=== PATIENT | female | born 1965 | race Caucasian/White ===

== ENCOUNTER 2019-06-17 14:42 | Inpatient (IN) | payer BC, OTHER ==
[2019-06-17] MEDS ORDERED: ACETAMINOPHEN TAB 500 MG TAB PO STA (15:28)
[2019-06-17] MEDS ORDERED: SODIUM CHLORIDE 0.9% 500 ML 500 ML IV STA (15:28)
[2019-06-17] MEDS ORDERED: ONDANSETRON 4 MG/2 ML VIAL IVP STA (15:28)
[2019-06-17] MEDS ORDERED: SODIUM CHLORIDE 0.9% 1,000 ML IV STA ×2 (15:28)
--- NOTE | 2019-06-17 15:35 | ED ---
Fever HPI - General Chief Complaint: Dizziness Stated Complaint: Back Pain/Headache Time Seen by Provider: 06/17/19 15:27 Source: patient, RN notes reviewed, old records reviewed Mode of arrival: ambulatory Limitations: no limitations - History of Present Illness Initial Comments: This is a 53-year-old female the ER for evaluation. Patient resents today for evaluation regarding dizziness lightheadedness not feeling well presented with fever diaphoresis. History of bariatric surgery. No recent change in medications no travel history no sick contacts mild nausea no vomiting no diarrhea no abdominal pain currently. MD Complaint: fever, malaise, weakness -: days(s) Temperature Source: subjective Associated Symptoms: chills, myalgias, headache, nausea Treatments Prior to Arrival: none - Related Data Home Medications Medication Instructions Recorded Confirmed Calcium Carbonate [Calcium] 1,200 mg PO DAILY 06/17/19 06/17/19 Ciprofloxacin HCl [Cipro] 250 mg PO Q12HR 06/17/19 06/17/19 Ferrous Sulfate [Feosol] 325 mg PO DAILY 06/17/19 06/17/19 Multivitamins, Thera [Multivitamin 1 tab PO DAILY 06/17/19 06/17/19 (formulary)] metFORMIN HCL 1,000 mg PO BID 06/17/19 06/17/19 Allergies Allergy/AdvReac Type Severity Reaction Status Date / Time latex Allergy Anaphylaxis Verified 06/17/19 16:02 Penicillins Allergy Anaphylaxis Verified 06/17/19 16:02 Review of Systems ROS Statement: Those systems with pertinent positive or pertinent negative responses have been documented in the HPI. ROS Other: All systems not noted in ROS Statement are negative. Past Medical History Past Medical History: Diabetes Mellitus Additional Past Medical History / Comment(s): CHRONIC BACK PAIN History of Any Multi-Drug Resistant Organisms: None Reported Past Surgical History: Bariatric Surgery Additional Past Surgical History / Comment(s): WEIGHT LOSS SURGERY- SLEEVE BYPASS Past Psychological History: No Psychological Hx Reported Smoking Status: Never smoker Past Alcohol Use History: None Reported Past Drug Use History: None Reported General Exam Limitations: no limitations General appearance: alert, in no apparent distress Head exam: Present: atraumatic, normocephalic, normal inspection Eye exam: Present: normal appearance, PERRL, EOMI. Absent: scleral icterus, conjunctival injection, periorbital swelling ENT exam: Present: normal exam, mucous membranes moist Neck exam: Present: normal inspection. Absent: tenderness, meningismus, lymphadenopathy Respiratory exam: Present: normal lung sounds bilaterally. Absent: respiratory distress, wheezes, rales, rhonchi, stridor Cardiovascular Exam: Present: normal rhythm, tachycardia, normal heart sounds. Absent: systolic murmur, diastolic murmur, rubs, gallop, clicks GI/Abdominal exam: Present: soft, normal bowel sounds. Absent: distended, te nderness, guarding, rebound, rigid Extremities exam: Present: normal inspection, full ROM, normal capillary refill. Absent: tenderness, pedal edema, joint swelling, calf tenderness Back exam: Present: normal inspection Neurological exam: Present: alert, oriented X3, CN II-XII intact Psychiatric exam: Present: normal affect, normal mood Skin exam: Present: warm, dry, intact, normal color. Absent: rash Course Vital Signs 06/17/19 06/17/19 06/17/19 15:20 17:03 18:05 Temperature 102.6 F H 100.7 F H 98.5 F Pulse Rate 107 H 93 87 Respiratory 18 18 18 Rate Blood Pressure 105/74 100/62 103/69 O2 Sat by Pulse 95 94 L 93 L Oximetry 06/17/19 19:04 Temperature Pulse Rate 87 Respiratory 18 Rate Blood Pressure 90/67 O2 Sat by Pulse 92 L Oximetry - Reevaluation(s) Reevaluation #1: 06/17/19 17:29 Medical record is reviewed Reevaluation #2: 06/17/19 17:29 Patient symptoms improving with hydration and fever control Medical Decision Making - Medical Decision Making 53 female the ER for evaluation will admit for IV antibiotics secondary to UTI and pyelonephritis. Fever. Not feeling well - Lab Data Result diagrams: 06/17/19 16:00 06/17/19 16:00 Lab Results 06/17/19 06/17/19 06/17/19 Range/Units 16:00 16:00 16:00 WBC 8.9 (3.8-10.6) k/uL RBC 4.10 (3.80-5.40) m/uL Hgb 13.4 (11.4-16.0) gm/dL Hct 39.6 (34.0-46.0) % MCV 96.5 (80.0-100.0) fL MCH 32.7 (25.0-35.0) pg MCHC 33.9 (31.0-37.0) g/dL RDW 16.3 H (11.5-15.5) % Plt Count 158 (150-450) k/uL Neutrophils % 82 % Lymphocytes % 11 % Monocytes % 5 % Eosinophils % 0 % Basophils % 1 % Neutrophils # 7.3 (1.3-7.7) k/uL Lymphocytes # 1.0 (1.0-4.8) k/uL Monocytes # 0.4 (0-1.0) k/uL Eosinophils # 0.0 (0-0.7) k/uL Basophils # 0.1 (0-0.2) k/uL Anisocytosis Slight PT 10.8 (9.0-12.0) sec INR 1.0 (<1.2) APTT 23.2 (22.0-30.0) sec D-Dimer 1.43 H (<0.60) mg/L FEU Sodium 138 (137-145) mmol/L Potassium 4.1 (3.5-5.1) mmol/L Chloride 103 (98-107) mmol/L Carbon Dioxide 21 L (22-30) mmol/L Anion Gap 14 mmol/L BUN 13 (7-17) mg/dL Creatinine 1.04 (0.52-1.04) mg/dL Est GFR (CKD-EPI)AfAm 71 (>60 ml/min/1.73 sqM) Est GFR (CKD-EPI)NonAf 61 (>60 ml/min/1.73 sqM) Glucose 188 H (74-99) mg/dL Plasma Lactic Acid Prakash (0.7-2.0) mmol/L Calcium 8.9 (8.4-10.2) mg/dL Phosphorus 3.1 (2.5-4.5) mg/dL Magnesium 1.8 (1.6-2.3) mg/dL Total Bilirubin 1.0 (0.2-1.3) mg/dL AST 36 (14-36) U/L ALT 104 H (9-52) U/L Alkaline Phosphatase 134 H (38-126) U/L Creatine Kinase 77 (30-135) U/L Troponin I (0.000-0.034) ng/mL NT-Pro-B Natriuret Pep pg/mL Total Protein 7.1 (6.3-8.2) g/dL Albumin 4.2 (3.5-5.0) g/dL TSH 31.600 H (0.465-4.680) mIU/L Urine Color Urine Appearance (Clear) Urine pH (5.0-8.0) Ur Specific [place] (1.001-1.035) Urine Protein (Negative) Urine Glucose (UA) (Negative) Urine Ketones (Negative) Urine Blood (Negative) Urine Nitrite (Negative) Urine Bilirubin (Negative) Urine Urobilinogen (<2.0) mg/dL Ur Leukocyte Esterase (Negative) Urine RBC (0-5) /hpf Urine WBC (0-5) /hpf Ur Squamous Epith Cells (0-4) /hpf Hyaline Casts (0-2) /lpf Urine Mucus (None) /hpf Influenza Type A RNA (Not Detectd) Influenza Type B (PCR) (Not Detectd) 06/17/19 06/17/19 06/17/19 Range/Units 16:00 16:00 16:00 WBC (3.8-10.6) k/uL RBC (3.80-5.40) m/uL Hgb (11.4-16.0) gm/dL Hct (34.0-46.0) % MCV (80.0-100.0) fL MCH (25.0-35.0) pg MCHC (31.0-37.0) g/dL RDW (11.5-15.5) % Plt Count (150-450) k/uL Neutrophils % % Lymphocytes % % Monocytes % % Eosinophils % % Basophils % % Neutrophils # (1.3-7.7) k/uL Lymphocytes # (1.0-4.8) k/uL Monocytes # (0-1.0) k/uL Eosinophils # (0-0.7) k/uL Basophils # (0-0.2) k/uL Anisocytosis PT (9.0-12.0) sec INR (<1.2) APTT (22.0-30.0) sec D-Dimer (<0.60) mg/L FEU Sodium (137-145) mmol/L Potassium (3.5-5.1) mmol/L Chloride (98-107) mmol/L Carbon Dioxide (22-30) mmol/L Anion Gap mmol/L BUN (7-17) mg/dL Creatinine (0.52-1.04) mg/dL Est GFR (CKD-EPI)AfAm (>60 ml/min/1.73 sqM) Est GFR (CKD-EPI)NonAf (>60 ml/min/1.73 sqM) Glucose (74-99) mg/dL Plasma Lactic Acid Prakash 1.5 (0.7-2.0) mmol/L Calcium (8.4-10.2) mg/dL Phosphorus (2.5-4.5) mg/dL Magnesium (1.6-2.3) mg/dL Total Bilirubin (0.2-1.3) mg/dL AST (14-36) U/L ALT (9-52) U/L Alkaline Phosphatase (38-126) U/L Creatine Kinase (30-135) U/L Troponin I <0.012 (0.000-0.034) ng/mL NT-Pro-B Natriuret Pep 154 pg/mL Total Protein (6.3-8.2) g/dL Albumin (3.5-5.0) g/dL TSH (0.465-4.680) mIU/L Urine Color Urine Appearance (Clear) Urine pH (5.0-8.0) Ur Specific [place] (1.001-1.035) Urine Protein (Negative) Urine Glucose (UA) (Negative) Urine Ketones (Negative) Urine Blood (Negative) Urine Nitrite (Negative) Urine Bilirubin (Negative) Urine Urobilinogen (<2.0) mg/dL Ur Leukocyte Esterase (Negative) Urine RBC (0-5) /hpf Urine WBC (0-5) /hpf Ur Squamous Epith Cells (0-4) /hpf Hyaline Casts (0-2) /lpf Urine Mucus (None) /hpf Influenza Type A RNA (Not Detectd) Influenza Type B (PCR) (Not Detectd) 06/17/19 06/17/19 Range/Units 16:00 16:10 WBC (3.8-10.6) k/uL RBC (3.80-5.40) m/uL Hgb (11.4-16.0) gm/dL Hct (34.0-46.0) % MCV (80.0-100.0) fL MCH (25.0-35.0) pg MCHC (31.0-37.0) g/dL RDW (11.5-15.5) % Plt Count (150-450) k/uL Neutrophils % % Lymphocytes % % Monocytes % % Eosinophils % % Basophils % % Neutrophils # (1.3-7.7) k/uL Lymphocytes # (1.0-4.8) k/uL Monocytes # (0-1.0) k/uL Eosinophils # (0-0.7) k/uL Basophils # (0-0.2) k/uL Anisocytosis PT (9.0-12.0) sec INR (<1.2) APTT (22.0-30.0) sec D-Dimer (<0.60) mg/L FEU Sodium (137-145) mmol/L Potassium (3.5-5.1) mmol/L Chloride (98-107) mmol/L Carbon Dioxide (22-30) mmol/L Anion Gap mmol/L BUN (7-17) mg/dL Creatinine (0.52-1.04) mg/dL Est GFR (CKD-EPI)AfAm (>60 ml/min/1.73 sqM) Est GFR (CKD-EPI)NonAf (>60 ml/min/1.73 sqM) Glucose (74-99) mg/dL Plasma Lactic Acid Prakash (0.7-2.0) mmol/L Calcium (8.4-10.2) mg/dL Phosphorus (2.5-4.5) mg/dL Magnesium (1.6-2.3) mg/dL Total Bilirubin (0.2-1.3) mg/dL AST (14-36) U/L ALT (9-52) U/L Alkaline Phosphatase (38-126) U/L Creatine Kinase (30-135) U/L Troponin I (0.000-0.034) ng/mL NT-Pro-B Natriuret Pep pg/mL Total Protein (6.3-8.2) g/dL Albumin (3.5-5.0) g/dL TSH (0.465-4.680) mIU/L Urine Color Yellow Urine Appearance Cloudy H (Clear) Urine pH 6.0 (5.0-8.0) Ur Specific [place] 1.016 (1.001-1.035) Urine Protein 1+ H (Negative) Urine Glucose (UA) Negative (Negative) Urine Ketones Negative (Negative) Urine Blood Trace H (Negative) Urine Nitrite Negative (Negative) Urine Bilirubin Negative (Negative) Urine Urobilinogen 6.0 (<2.0) mg/dL Ur Leukocyte Esterase Moderate H (Negative) Urine RBC 2 (0-5) /hpf Urine WBC 142 H (0-5) /hpf Ur Squamous Epith Cells 4 (0-4) /hpf Hyaline Casts 1 (0-2) /lpf Urine Mucus Rare H (None) /hpf Influenza Type A RNA Not Detected (Not Detectd) Influenza Type B (PCR) Not Detected (Not Detectd) - Radiology Data Radiology results: report reviewed (CTA chest abdomen pelvis shows positive pyelonephritis), image reviewed Disposition Clinical Impression: Dehydration, UTI (urinary tract infection), Pyelonephritis, Fever Disposition: ADMITTED IP TO THIS [facility] Condition: Fair Is patient prescribed a controlled substance at d/c from ED?: No Referrals: Nimesh Moody MD [Primary Care Provider] - 1-2 days
[2019-06-17] MEDS: IBUPROFEN 600 MG TAB PO STA ×2 (16:10→16:16)
[2019-06-17 16:27] LABS: Anisocytosis Slight; Basophils # (A) 0.1 k/uL (0-0.2); Basophils % (A) 1 %; Eosinophils % (A) 0 %; HCT 39.6 % (34.0-46.0); HGB 13.4 gm/dL (11.4-16.0); Lymphocytes % (A) 11 %; MCH 32.7 pg (25.0-35.0); MCHC 33.9 g/dL (31.0-37.0); MCV 96.5 fL (80.0-100.0); Mean Platelet Volume 7.5; Monocytes # (A) 0.4 k/uL (0-1.0); Monocytes % (A) 5 %; Neutrophils # (A) 7.3 k/uL (1.3-7.7); Neutrophils % (A) 82 %; Platelet Count 158 k/uL (150-450); RDW 16.3 % (11.5-15.5); WBC 8.9 k/uL (3.8-10.6)
[2019-06-17 16:28] LABS: Albumin 4.2 g/dL (3.5-5.0); Calcium 8.9 mg/dL (8.4-10.2); Magnesium 1.8 mg/dL (1.6-2.3); Partial Thromboplastin Time 23.2 sec (22.0-30.0); Phosphorus 3.1 mg/dL (2.5-4.5); Potassium 4.1 mmol/L (3.5-5.1); Prothrombin Time 10.8 sec (9.0-12.0); Total Protein 7.1 g/dL (6.3-8.2)
[2019-06-17 16:31] LABS: Appearance,Urine Cloudy (Clear); Bilirubin,Urine Negative (Negative); Blood,Urine Trace (Negative); Color,Urine Yellow; Glucose,Urine (UA) Negative (Negative); Hyaline Casts,Urine 1 /lpf (0-2); Ketones,Urine Negative (Negative); Leukocyte Esterase,Urine Moderate (Negative); Mucus,Urine Rare /hpf; Nitrite,Urine Negative (Negative); Protein,Urine 1+ (Negative); RBC,Urine 2 /hpf (0-5); Specific Gravity,Urine 1.016 (1.001-1.035); Squamous Epithelial Cell,Urine 4 /hpf (0-4)
--- NOTE | 2019-06-17 16:39 | XR ---
EXAMINATION TYPE: XR chest 2V DATE OF EXAM: 06/17/2019 COMPARISON: NONE HISTORY: Weakness TECHNIQUE: Frontal and lateral views of the chest are obtained. FINDINGS: Heart and mediastinum are normal. There are small linear density at the left lung base. Th e other lung romero are clear. There are no hilar masses. There is left-sided central venous catheter with tip in the superior vena cava. Bony thorax is intact. IMPRESSION: Minimal left-sided subsegmental atelectasis. Normal heart.
[2019-06-17 16:43] LABS: D-Dimer 1.43 mg/L FEU (<0.60)
[2019-06-17] MEDS ORDERED: IOPAMIDOL-300 CONTRAST 30 ML VIAL (ORAL USE) PO PRN (17:18)
[2019-06-17] MEDS ORDERED: MORPHINE SULFATE 4 MG/ML SYRINGE IVP STA (18:10)
--- NOTE | 2019-06-17 18:22 | CT ---
EXAMINATION TYPE: CT angio chest DATE OF EXAM: 06/17/2019 6:11 PM COMPARISON: None HISTORY: Headache, dizziness and weakness CT DLP: 312.2 mGycm Automated exposure control for dose reduction was used. CONTRAST: CTA scan of the thorax is performed with IV Contrast, patient injected with 100 mL of Isovue 370, pul monary embolism protocol. . There are 3-D post processed images. FINDINGS: There is mild linear reticular density at the lung bases consistent with scarring and subsegmental at electasis. There is no pleural effusion. There is no evidence of pulmonary mass. There are small hiat al hernia. There is previous gastric surgery. Heart size is normal. There is no pericardial effusion. There are no hilar masses. There is no medias tinal adenopathy. There is normal contrast opacification of the pulmonary arteries. I see no filling defects. There is intact thoracic spine. Bony thorax is intact. IMPRESSION: NO EVIDENCE OF PULMONARY EMBOLISM. MINIMAL SCARRING AND SUBSEGMENTAL ATELECTASIS AT THE LUNG BASES.
--- NOTE | 2019-06-17 18:46 | CT ---
EXAMINATION TYPE: CT abdomen pelvis w con DATE OF EXAM: 06/17/2019 COMPARISON: None HISTORY: Headache, dizziness and weakness Abdominal pain CT DLP: 1454.2 mGycm Automated exposure control for dose reduction was used. TECHNIQUE: Helical acquisition of images was performed from the lung bases through the pelvis. CONTRAST: Performed without Oral Contrast and with IV Contrast, patient injected with 100 mL of Isovue 370. FINDINGS: Lung bases are clear of consolidation. There is no pleural effusion. Heart size is normal. There is n o pericardial effusion. There is previous gastric surgery. There is a small hiatal hernia. Liver spleen appear normal. Gallbladder appears normal. Bile ducts are not dilated. There is no evide nce of pancreatic mass. There is no adrenal mass. There is some fullness of the left renal pelvis. There is mild left-sided perinephric stranding. Uterus is anteverted. There is no evidence of a pelvic mass. Bladder distends smoothly. There is no inguinal hernia. There is no free fluid in the pelvis. There i s no intestinal wall thickening. There is no evidence of a bowel obstruction. There is slight decreas ed cortical enhancement of the left kidney compared to the right. The bony pelvis is intact. Lumbar v ertebra appear intact. There is no compression fracture. There is no mesenteric edema. There is no ascites or free air. IMPRESSION: CHANGES IN THE LEFT KIDNEY WITH DECREASED CORTICAL ENHANCEMENT AND PERINEPHRIC INFLAMMATORY CHANGES S UGGESTIVE OF ACUTE PYELONEPHRITIS. Mild left renal obstruction not entirely excluded.
[2019-06-17] MEDS: SODIUM CHLORIDE 0.9% 500 ML 500 ML IV SCH ×2 (22:18→22:19)
[2019-06-17] MEDS ORDERED: SODIUM CHLORIDE 0.9% 500 ML 500 ML IV ONE (22:19)
[2019-06-17] MEDS: SODIUM CHLORIDE 0.9% 1,000 ML IV SCH (22:30)
[2019-06-17 22:40] LABS: Glucose,Whole Blood 152 mg/dL (75-99)
[2019-06-17 22:48] VITALS: BMI 41.5
[2019-06-17] MEDS: LEVOTHYROXINE 125 MCG TAB PO SCH (23:03)
[2019-06-17] MEDS: TEMAZEPAM 15 MG CAP PO PRN (23:03)
[2019-06-18] MEDS: SODIUM CHLORIDE 0.9% 1,000 ML IV SCH ×4 (01:07→21:20)
[2019-06-18] MEDS: ACETAMINOPHEN TAB 325 MG TAB PO PRN (03:41)
[2019-06-18] MEDS ORDERED: GENTAMICIN PER PHARMACY MISCELLANE PRN (05:36)
[2019-06-18] MEDS ORDERED: LEVOFLOXACIN 500MG-D5W PMX 500 MG in DEXTROSE/WATER 1 100ML.BAG IVPB ONE (05:45)
[2019-06-18] MEDS: INSULIN ASPART (NovoLOG) 100 UNIT/ML VIAL SQ SCH ×4 (07:02→21:17)
[2019-06-18 07:10] LABS: Glucose,Whole Blood 128 mg/dL (75-99)
[2019-06-18] MEDS ORDERED: GENTAMICIN 300 MG in SODIUM CHLORIDE 0.9% 100 ML IVPB ONE (07:30)
[2019-06-18] MEDS: MULTIVITAMINS, THERA 1 EACH TAB PO SCH (07:52)
[2019-06-18] MEDS: metFORMIN 500 MG TAB PO SCH ×2 (07:52→21:16)
[2019-06-18] MEDS: FERROUS SULFATE 325 MG TAB PO SCH (07:52)
[2019-06-18] MEDS: ENOXAPARIN 40 MG/0.4 ML SYRINGE SQ SCH (07:52)
[2019-06-18] MEDS: CALCIUM CARBONATE 500 MG CHEWABLE PO SCH (07:53)
--- NOTE | 2019-06-18 07:55 | P.HPIM ---
History of Present Illness H&P Date: 06/18/19 Chief Complaint: Back pain with fever This is a history of physical and a 53-year-old white female who was complaining of significant back pain. She was treated for UTI as an outpatient but essentially failed outpatient therapy. 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 The patient is now essentially admitted after evaluation for pyelonephritis. She has had positive blood culture for gram-negative bacilli is now being treated with dual antibiotic therapy. No hematuria stated. Review of Systems Constitutional: Reports fatigue, Reports fever, Reports sweats Eyes: denies blurred vision, denies pain Cardiovascular: Denies chest pain, Denies shortness of breath Respiratory: Denies cough Gastrointestinal: Denies abdominal pain, Denies diarrhea, Denies nausea, Denies vomiting Genitourinary: Reports flank pain Musculoskeletal: Denies myalgias Past Medical History Past Medical History: Diabetes Mellitus Additional Past Medical History / Comment(s): CHRONIC BACK PAIN History of Any Multi-Drug Resistant Organisms: None Reported Past Surgical History: Bariatric Surgery Additional Past Surgical History / Comment(s): WEIGHT LOSS SURGERY- SLEEVE BYPASS Past Psychological History: No Psychological Hx Reported Smoking Status: Never smoker Past Alcohol Use History: None Reported Past Drug Use History: None Reported Medications and Allergies Home Medications Medication Instructions Recorded Confirmed Type Calcium Carbonate [Calcium] 1,200 mg PO DAILY 06/17/19 06/17/19 History Ciprofloxacin HCl [Cipro] 250 mg PO Q12HR 06/17/19 06/17/19 History Ferrous Sulfate [Feosol] 325 mg PO DAILY 06/17/19 06/17/19 History Multivitamins, Thera [Multivitamin 1 tab PO DAILY 06/17/19 06/17/19 History (formulary)] metFORMIN HCL 1,000 mg PO BID 06/17/19 06/17/19 History Allergies Allergy/AdvReac Type Severity Reaction Status Date / Time latex Allergy Anaphylaxis Verified 06/17/19 16:02 Penicillins Allergy Anaphylaxis Verified 06/17/19 16:02 Physical Exam Vitals: Vital Signs Temp Pulse Pulse Resp BP BP Pulse Ox 06/18/19 04:40 98.2 F 84 20 103/69 95 06/18/19 03:41 120/80 06/17/19 22:43 98.2 F 89 20 101/73 98 06/17/19 22:01 98.9 F 89 18 88/53 93 L 06/17/19 21:14 82 18 89/54 92 L 06/17/19 20:12 98 F 83 18 90/67 93 L 06/17/19 19:04 87 18 90/67 92 L 06/17/19 18:05 98.5 F 87 18 103/69 93 L 06/17/19 17:03 100.7 F H 93 18 100/62 94 L 06/17/19 15:20 102.6 F H 107 H 18 105/74 95 Intake and Output 06/17/19 06/18/19 06/18/19 22:59 06:59 14:59 Intake Total 0 100 Output Total 1 Balance 0 99 Intake: Oral 0 100 Output: Urine 1 Other: # Voids 1 Weight 96.615 kg - Constitutional General appearance: no acute distress - EENT Eyes: EOMI - Neck Neck: no lymphadenopathy - Cardiovascular Rhythm: regular Heart sounds: normal: S1, S2 Abnormal Heart Sounds: no S3 Gallop - Gastrointestinal General gastrointestinal: soft, no tenderness - Integumentary Integumentary: no cellulitis - Neurologic Neurologic: CNII-XII intact - Musculoskeletal Musculoskeletal: strength equal bilaterally - Psychiatric Psychiatric: A&O x's 3, intact judgment & insight Results CBC & Chem 7: 06/17/19 16:00 06/17/19 16:00 Labs: Abnormal Lab Results - Last 24 Hours (Table) 06/17/19 06/17/19 06/17/19 Range/Units 16:00 16:00 16:00 RDW 16.3 H (11.5-15.5) % D-Dimer 1.43 H (<0.60) mg/L FEU Carbon Dioxide 21 L (22-30) mmol/L Glucose 188 H (74-99) mg/dL POC Glucose (mg/dL) (75-99) mg/dL ALT 104 H (9-52) U/L Alkaline Phosphatase 134 H (38-126) U/L TSH 31.600 H (0.465-4.680) mIU/L Urine Appearance (Clear) Urine Protein (Negative) Urine Blood (Negative) Ur Leukocyte Esterase (Negative) Urine WBC (0-5) /hpf Urine Mucus (None) /hpf 06/17/19 06/17/19 06/18/19 Range/Units 16:00 22:25 07:02 RDW (11.5-15.5) % D-Dimer (<0.60) mg/L FEU Carbon Dioxide (22-30) mmol/L Glucose (74-99) mg/dL POC Glucose (mg/dL) 152 H 128 H (75-99) mg/dL ALT (9-52) U/L Alkaline Phosphatase (38-126) U/L TSH (0.465-4.680) mIU/L Urine Appearance Cloudy H (Clear) Urine Protein 1+ H (Negative) Urine Blood Trace H (Negative) Ur Leukocyte Esterase Moderate H (Negative) Urine WBC 142 H (0-5) /hpf Urine Mucus Rare H (None) /hpf Microbiology - Last 24 Hours (Table) 06/17/19 16:00 Blood Culture Gram Stain - Preliminary Blood 06/17/19 16:00 Blood Culture - Final Blood 06/17/19 16:00 Urine Culture - Preliminary Urine,Voided Thrombosis Risk Factor Assmnt - Choose All That Apply Any of the Below Risk Factors Present?: Yes Each Factor Represents 1 point: Obesity (BMI >25) Other Risk Factors: No Thrombosis Risk Factor Assessment Total Risk Factor Score: 1 Thrombosis Risk Factor Assessment Level: Low Risk Assessment and Plan (1) Sepsis Current Visit: Yes Status: Acute Code(s): A41.9 - SEPSIS, UNSPECIFIED ORGANISM SNOMED Code(s): 43228983 (2) Dehydration Current Visit: Yes Status: Acute Code(s): E86.0 - DEHYDRATION SNOMED Code(s): 78270818 (3) Fever Current Visit: Yes Status: Acute Code(s): R50.9 - FEVER, UNSPECIFIED SNOMED Code(s): 842438684 (4) Pyelonephritis Current Visit: Yes Status: Acute Code(s): N12 - TUBULO-INTERSTITIAL NEPHRITIS, NOT SPCF ACUTE OR CHRONIC SNOMED Code(s): 57775891 (5) UTI (urinary tract infection) Current Visit: Yes Status: Acute Code(s): N39.0 - URINARY TRACT INFECTION, SITE NOT SPECIFIED SNOMED Code(s): 13690134 Plan: Continue empiric antibiotic treatment. IV hydration. Check CBC and CMP in a.m. For antibiotic assistance, I have asked infectious disease for consultation. The patient is otherwise full code. Prognosis is guarded.
[2019-06-18] MEDS: traMADol 50 MG TAB PO SCH ×4 (08:04→21:16)
[2019-06-18 08:15] LABS: Albumin 3.2 g/dL (3.5-5.0); Potassium 3.9 mmol/L (3.5-5.1); Total Bilirubin 0.6 mg/dL (0.2-1.3); Total Protein 5.9 g/dL (6.3-8.2)
[2019-06-18] MEDS ORDERED: PANTOPRAZOLE 40 MG/10 ML VIAL IV SCH (09:00)
[2019-06-18 09:16] LABS: Basophils % (A) 0 %; Eosinophils # (A) 0.1 k/uL (0-0.7); Eosinophils % (A) 1 %; HCT 33.1 % (34.0-46.0); HGB 10.8 gm/dL (11.4-16.0); Lymphocytes # (A) 0.8 k/uL (1.0-4.8); Lymphocytes % (A) 11 %; MCH 32.2 pg (25.0-35.0); MCHC 32.7 g/dL (31.0-37.0); MCV 98.6 fL (80.0-100.0); Macrocytosis Slight; Mean Platelet Volume 7.6; Monocytes # (A) 0.3 k/uL (0-1.0); Monocytes % (A) 4 %; Neutrophils # (A) 6.5 k/uL (1.3-7.7); Neutrophils % (A) 83 %; Platelet Count 141 k/uL (150-450); RBC 3.36 m/uL (3.80-5.40); WBC 7.9 k/uL (3.8-10.6)
--- NOTE | 2019-06-18 09:24 | P.CONS ---
History of Present Illness - Reason for Consult Consult date: 06/18/19 Sepsis - History of Present Illness This is a 53-year-old female who is history that over the past 6 months she has had frequent urinary tract infections. She states she has been treated in the past with Z-Carlitos, Bactrim and most recently with Cipro. She states that the UTI symptoms clear up and then about a week later she developed symptoms again. She recently moved to the [facility] and has been follow ing with our clinic which she does not recall the name. She was started on Cipro approximate 4-5 days ago. She did have a recheck at the clinic on Saturday and was provided with a new antibiotic which she has not had filled as there was a problem with the transmission of the prescription to her pharmacy. She states that she does follow with someone every 3 months to have blood work done regarding her hypothyroidism. She was told that checked it was in normal range the last blood draw. Patient's urinary symptoms include pain with urination, frequency. She denies having any fever or chills. She is complaining of back pain in the low sacrum area which is chronic and she has received steroid injections for this. She also complains of vertigo which is improved. She denies any CVA pain. The patient presented to the [facility] emergency center found to have a fever 102.6, white count was 8.9, d-dimer 1.43, creatinine 1.04, lactic acid 1.5, ALT 104, alkaline phosphatase 134. TSH was 31.6. Urinalysis cloudy, leukoesterase moderate, Shannan BC is 142. Influenza testing negative. Urine culture is in progress. Blood culture is positive for gram-negative bacilli. Chest x-ray shows minimal left subsegmental atelectasis. CTA of the chest with showed no pulmonary embolism. Minimal scar and subsegmental atelectasis. Abdomen and pelvis CAT scan with contrast showed changes in the left kidney consistent with acute pyelonephritis. Mild left renal obstruction not entirely excluded. Patient was provided Zosyn, Levaquin and Rocephin in the emergency center. She is currently on gentamicin and Levaquin. Review of Systems Constitutional: Denies anorexia, Denies chills, Denies fatigue, Denies fever, Denies poor appetite, Denies weakness Ears, nose, mouth and throat: Reports headache, Reports vertigo, Denies dental pain, Denies mouth pain, Denies nasal congestion, Denies nasal discharge, Denies sore throat Cardiovascular: Denies chest pain, Denies decreased exercise tolerance, Denies dyspnea on exertion, Denies edema, Denies leg edema, Denies lightheadedness, Denies syncope Respiratory: Denies cough, Denies cough with sputum, Denies dyspnea, Denies excessive sputum, Denies hemoptysis, Denies home oxygen, Denies wheezing Gastrointestinal: Denies abdominal pain, Denies constipation, Denies diarrhea, Denies loss of appetite, Denies nausea, Denies vomiting Genitourinary: Reports dysuria, Reports urgency, Reports urinary frequency, Denies flank pain Musculoskeletal: Denies frequent falls, Denies gait dysfunction, Denies muscle weakness, Denies myalgias Integumentary: Denies pruritus, Denies rash, Denies wounds Neurological: Denies aphasia, Denies change in mentation, Denies change in speech, Denies gait dysfunction, Denies numbness, Denies syncope, Denies weakness Psychiatric: Denies anxiety, Denies depression Past Medical History Past Medical History: Diabetes Mellitus, Thyroid Disorder Additional Past Medical History / Comment(s): CHRONIC BACK PAIN History of Any Multi-Drug Resistant Organisms: None Reported Past Surgical History: Bariatric Surgery Additional Past Surgical History / Comment(s): WEIGHT LOSS SURGERY- SLEEVE BYPASS Past Psychological History: No Psychological Hx Reported Smoking Status: Never smoker Past Alcohol Use History: None Reported Additional Past Alcohol Use History / Comment(s): Patient states that she is a lifelong nonsmoker. No marijuana or illicit drug use. She denies any alcohol use. She lives at home with her . There is a dog and a cat in the home. 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 Past Drug Use History: None Reported Medications and Allergies Home Medications Medication Instructions Recorded Confirmed Type Calcium Carbonate [Calcium] 1,200 mg PO DAILY 06/17/19 06/17/19 History Ciprofloxacin HCl [Cipro] 250 mg PO Q12HR 06/17/19 06/17/19 History Ferrous Sulfate [Feosol] 325 mg PO DAILY 06/17/19 06/17/19 History Multivitamins, Thera [Multivitamin 1 tab PO DAILY 06/17/19 06/17/19 History (formulary)] metFORMIN HCL 1,000 mg PO BID 06/17/19 06/17/19 History Allergies Allergy/AdvReac Type Severity Reaction Status Date / Time latex Allergy Anaphylaxis Verified 06/17/19 16:02 Penicillins Allergy Anaphylaxis Verified 06/17/19 16:02 Physical Exam Vitals: Vital Signs Temp Pulse Pulse Resp BP BP Pulse Ox 06/18/19 04:40 98.2 F 84 20 103/69 95 06/18/19 03:41 120/80 06/17/19 22:43 98.2 F 89 20 101/73 98 06/17/19 22:01 98.9 F 89 18 88/53 93 L 06/17/19 21:14 82 18 89/54 92 L 06/17/19 20:12 98 F 83 18 90/67 93 L 06/17/19 19:04 87 18 90/67 92 L 06/17/19 18:05 98.5 F 87 18 103/69 93 L 06/17/19 17:03 100.7 F H 93 18 100/62 94 L 06/17/19 15:20 102.6 F H 107 H 18 105/74 95 Intake and Output 06/17/19 06/18/19 06/18/19 22:59 06:59 14:59 Intake Total 0 100 Output Total 1 Balance 0 99 Intake: Oral 0 100 Output: Urine 1 Other: # Voids 1 Weight 96.615 kg Gen: This is a morbidly obese 53-year-old female. She is sitting on the edge of the bed eating breakfast and appears to be comfortable and in no acute distress. HEENT: Head is atraumatic, normocephalic. Pupils equal, round. Sclerae is anicteric. Conjunctiva pink. Mucous members of the mouth are moist. Patient is edentulous. No lesions noted. NECK: Supple. No JVD. No lymphadenopathy. No thyromegaly. LUNGS: Clear to auscultation. No wheezes or rhonchi. No intercostal retractions. HEART: Regular rate and rhythm. No murmur. ABDOMEN: Soft. Bowel sounds are present. No masses. No abdominal, suprapubic tenderness. No CVA tenderness. EXTREMITIES: No pedal edema. No calf tenderness. Dorsalis pedis +2 bila terally. NEUROLOGICAL: Patient is awake, alert and oriented x3. Cranial nerves 2 through 12 are grossly intact. Results Results: Laboratory Results WBC 7.9 k/uL (3.8-10.6) 06/18/19 07:43 RBC 3.36 m/uL (3.80-5.40) L 06/18/19 07:43 Hgb 10.8 gm/dL (11.4-16.0) L 06/18/19 07:43 Hct 33.1 % (34.0-46.0) L 06/18/19 07:43 MCV 98.6 fL (80.0-100.0) 06/18/19 07:43 MCH 32.2 pg (25.0-35.0) 06/18/19 07:43 MCHC 32.7 g/dL (31.0-37.0) 06/18/19 07:43 RDW 16.0 % (11.5-15.5) H 06/18/19 07:43 Plt Count 141 k/uL (150-450) L 06/18/19 07:43 Neutrophils % 83 % 06/18/19 07:43 Lymphocytes % 11 % 06/18/19 07:43 Monocytes % 4 % 06/18/19 07:43 Eosinophils % 1 % 06/18/19 07:43 Basophils % 0 % 06/18/19 07:43 Neutrophils # 6.5 k/uL (1.3-7.7) 06/18/19 07:43 Lymphocytes # 0.8 k/uL (1.0-4.8) L 06/18/19 07:43 Monocytes # 0.3 k/uL (0-1.0) 06/18/19 07:43 Eosinophils # 0.1 k/uL (0-0.7) 06/18/19 07:43 Basophils # 0.0 k/uL (0-0.2) 06/18/19 07:43 Anisocytosis Slight 06/17/19 16:00 Macrocytosis Slight 06/18/19 07:43 PT 10.8 sec (9.0-12.0) 06/17/19 16:00 INR 1.0 (<1.2) 06/17/19 16:00 APTT 23.2 sec (22.0-30.0) 06/17/19 16:00 D-Dimer 1.43 mg/L FEU (<0.60) H 06/17/19 16:00 Sodium 138 mmol/L (137-145) 06/18/19 07:43 Potassium 3.9 mmol/L (3.5-5.1) 06/18/19 07:43 Chloride 107 mmol/L (98-107) 06/18/19 07:43 Carbon Dioxide 24 mmol/L (22-30) 06/18/19 07:43 Anion Gap 7 mmol/L 06/18/19 07:43 BUN 11 mg/dL (7-17) 06/18/19 07:43 Creatinine 0.95 mg/dL (0.52-1.04) 06/18/19 07:43 Est GFR (CKD-EPI)AfAm 79 (>60 ml/min/1.73 sqM) 06/18/19 07:43 Est GFR (CKD-EPI)NonAf 69 (>60 ml/min/1.73 sqM) 06/18/19 07:43 Glucose 135 mg/dL (74-99) H 06/18/19 07:43 POC Glucose (mg/dL) 128 mg/dL (75-99) H 06/18/19 07:02 POC Glu Pile Driver Engineer ID Nasra Palafox 06/18/19 07:02 Plasma Lactic Acid Prakash 1.5 mmol/L (0.7-2.0) 06/17/19 16:00 Calcium 8.0 mg/dL (8.4-10.2) L 06/18/19 07:43 Phosphorus 3.1 mg/dL (2.5-4.5) 06/17/19 16:00 Magnesium 1.8 mg/dL (1.6-2.3) 06/17/19 16:00 Total Bilirubin 0.6 mg/dL (0.2-1.3) 06/18/19 07:43 AST 29 U/L (14-36) 06/18/19 07:43 ALT 80 U/L (9-52) H 06/18/19 07:43 Alkaline Phosphatase 94 U/L (38-126) 06/18/19 07:43 Creatine Kinase 77 U/L (30-135) 06/17/19 16:00 Troponin I <0.012 ng/mL (0.000-0.034) 06/17/19 16:00 NT-Pro-B Natriuret Pep 154 pg/mL 06/17/19 16:00 Total Protein 5.9 g/dL (6.3-8.2) L 06/18/19 07:43 Albumin 3.2 g/dL (3.5-5.0) L 06/18/19 07:43 TSH 31.600 mIU/L (0.465-4.680) H 06/17/19 16:00 Urine Color Yellow 06/17/19 16:00 Urine Appearance Cloudy (Clear) H 06/17/19 16:00 Urine pH 6.0 (5.0-8.0) 06/17/19 16:00 Ur Specific [place] 1.016 (1.001-1.035) 06/17/19 16:00 Urine Protein 1+ (Negative) H 06/17/19 16:00 Urine Glucose (UA) Negative (Negative) 06/17/19 16:00 Urine Ketones Negative (Negative) 06/17/19 16:00 Urine Blood Trace (Negative) H 06/17/19 16:00 Urine Nitrite Negative (Negative) 06/17/19 16:00 Urine Bilirubin Negative (Negative) 06/17/19 16:00 Urine Urobilinogen 6.0 mg/dL (<2.0) 06/17/19 16:00 Ur Leukocyte Esterase Moderate (Negative) H 06/17/19 16:00 Urine RBC 2 /hpf (0-5) 06/17/19 16:00 Urine WBC 142 /hpf (0-5) H 06/17/19 16:00 Ur Squamous Epith Cells 4 /hpf (0-4) 06/17/19 16:00 Hyaline Casts 1 /lpf (0-2) 06/17/19 16:00 Urine Mucus Rare /hpf (None) H 06/17/19 16:00 Influenza Type A RNA Not Detected (Not Detectd) 06/17/19 16:10 Influenza Type B (PCR) Not Detected (Not Detectd) 06/17/19 16:10 CBC & Chem 7: 06/17/19 16:00 06/18/19 07:43 Labs: Abnormal Lab Results - Last 24 Hours (Table) 06/17/19 06/17/19 06/17/19 Range/Units 16:00 16:00 16:00 RDW 16.3 H (11.5-15.5) % D-Dimer 1.43 H (<0.60) mg/L FEU Carbon Dioxide 21 L (22-30) mmol/L Glucose 188 H (74-99) mg/dL POC Glucose (mg/dL) (75-99) mg/dL Calcium (8.4-10.2) mg/dL ALT 104 H (9-52) U/L Alkaline Phosphatase 134 H (38-126) U/L Total Protein (6.3-8.2) g/dL Albumin (3.5-5.0) g/dL TSH 31.600 H (0.465-4.680) mIU/L Urine Appearance (Clear) Urine Protein (Negative) Urine Blood (Negative) Ur Leukocyte Esterase (Negative) Urine WBC (0-5) /hpf Urine Mucus (None) /hpf 06/17/19 06/17/19 06/18/19 Range/Units 16:00 22:25 07:02 RDW (11.5-15.5) % D-Dimer (<0.60) mg/L FEU Carbon Dioxide (22-30) mmol/L Glucose (74-99) mg/dL POC Glucose (mg/dL) 152 H 128 H (75-99) mg/dL Calcium (8.4-10.2) mg/dL ALT (9-52) U/L Alkaline Phosphatase (38-126) U/L Total Protein (6.3-8.2) g/dL Albumin (3.5-5.0) g/dL TSH (0.465-4.680) mIU/L Urine Appearance Cloudy H (Clear) Urine Protein 1+ H (Negative) Urine Blood Trace H (Negative) Ur Leukocyte Esterase Moderate H (Negative) Urine WBC 142 H (0-5) /hpf Urine Mucus Rare H (None) /hpf 06/18/19 Range/Units 07:43 RDW (11.5-15.5) % D-Dimer (<0.60) mg/L FEU Carbon Dioxide (22-30) mmol/L Glucose 135 H (74-99) mg/dL POC Glucose (mg/dL) (75-99) mg/dL Calcium 8.0 L (8.4-10.2) mg/dL ALT 80 H (9-52) U/L Alkaline Phosphatase (38-126) U/L Total Protein 5.9 L (6.3-8.2) g/dL Albumin 3.2 L (3.5-5.0) g/dL TSH (0.465-4.680) mIU/L Urine Appearance (Clear) Urine Protein (Negative) Urine Blood (Negative) Ur Leukocyte Esterase (Negative) Urine WBC (0-5) /hpf Urine Mucus (None) /hpf Microbiology - Last 24 Hours (Table) 06/17/19 16:00 Blood Culture Gram Stain - Preliminary Blood 06/17/19 16:00 Blood Culture - Final Blood 06/17/19 16:00 Urine Culture - Preliminary Urine,Voided Assessment and Plan Plan: This is a 53-year-old female who presented to the hospital with sepsis with fever, tachycardia secondary to acute pyelonephritis. Patient is currently on gentamicin and Levaquin. Urine culture is in progress. Blood culture is positive for gram negatives bacilli. We will ask for culture reports from her clinic note approximate 5 days ago. Repeat blood culture has been ordered. Incentive spirometry added to address atelectasis. Continue supportive care. Further admonitions as patient regresses. The above dictated assessment and findings were discussed with Dr. Srinivasan. The impression and plan of care have been directed as dictated. Adriane Vázquez nurse practitioner acting as scribe for Dr. Srinivasan.
[2019-06-18 12:17] LABS: Glucose,Whole Blood 112 mg/dL (75-99)
[2019-06-18 17:10] LABS: Glucose,Whole Blood 86 mg/dL (75-99)
[2019-06-18 20:25] LABS: Glucose,Whole Blood 188 mg/dL (75-99)
[2019-06-18] MEDS: LEVOTHYROXINE 125 MCG TAB PO SCH (21:16)
[2019-06-18] MEDS: TEMAZEPAM 15 MG CAP PO PRN (21:16)
--- NOTE | 2019-06-18 23:47 | P.CON ---
Consult Note - . Consult date: 06/18/19 Assessment/Plan:: This is a 53-year-old female who is history that over the past 6 months she has had frequent urinary tract infections. She states she has been treated in the past with Z-Carlitos, Bactrim and most recently with Cipro. She states that the UTI symptoms clear up and then about a week later she developed symptoms again. She recently moved to the [facility] and has been following with our clinic which she does not recall the name. She was started on Cipro approximate 4-5 days ago. She did have a recheck at the clinic on Saturday and was provided with a new antibiotic which she has not had filled as there was a problem with the transmission of the prescription to her pharmacy. She states that she does follow with someone every 3 months to have blood work done regarding her hypothyroidism. She was told that checked it was in normal range the last blood draw. Patient's urinary symptoms include pain with urination, frequency. She denies having any fever or chills. She is complaining of back pain in the low sacrum area which is chronic and she has received steroid injections for this. She also complains of vertigo which is improved. She denies any CVA pain. The patient presented to the [facility] emergency center found to have a fever 102.6, white count was 8.9, d-dimer 1.43, creatinine 1.04, lactic acid 1.5, ALT 104, alkaline phosphatase 134. TSH was 31.6. Urinalysis cloudy, leukoesterase moderate, Shannan BC is 142. Influenza testing negative. Urine culture is in progress. Blood culture is positive for gram-negative bacilli. Chest x-ray shows minimal left subsegmental atelectasis. CTA of the chest with showed no pulmonary embolism. Minimal scar and subsegmental atelectasis. Abdomen and pelvis CAT scan with contrast showed changes in the left kidney consistent with acute pyelonephritis. Mild left renal obstruction not entirely excluded. Patient was provided Zosyn, Levaquin and Rocephin in the emergency center. She is currently on gentamicin and Levaquin.Please see the consult note is dictated by nurse practitioner Mrs. Adriane Vázquez. 53 -year-old woman woman who has had several bouts of infection of her urinary system. She's been treated with antibiotic therapy that includes azithromycin, Bactrim and ciprofloxacin. Despite these antibiotics she shortly thereafter develops ongoing symptoms of her urinary infection. She now presents to Hospital of high-grade fever and not feeling well. 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 Relates that she's been ill for the last of the time and is worried about getting back to work quickly. We discussed that her imaging studies reveal evidence of the pyelonephritis and is imperative that the pathogen is found inappropriate therapy is given. Given the recurrent nature and the discomfort she has, may do well with nephrology consult even as an outpatient to further evaluate this difficulty because of the recurrent nature.
[2019-06-19] MEDS: SODIUM CHLORIDE 0.9% 1,000 ML IV SCH ×2 (03:58→12:22)
[2019-06-19] MEDS: LEVOFLOXACIN 250MG-D5W PMX 250 MG in DEXTROSE/WATER 1 50ML.BAG IVPB SCH (05:34)
[2019-06-19 07:06] LABS: Glucose,Whole Blood 94 mg/dL (75-99)
[2019-06-19] MEDS: INSULIN ASPART (NovoLOG) 100 UNIT/ML VIAL SQ SCH ×4 (07:43→22:22)
[2019-06-19] MEDS: metFORMIN 500 MG TAB PO SCH ×2 (07:50→22:18)
[2019-06-19] MEDS: ENOXAPARIN 40 MG/0.4 ML SYRINGE SQ SCH (07:51)
[2019-06-19] MEDS: CALCIUM CARBONATE 500 MG CHEWABLE PO SCH (07:51)
[2019-06-19] MEDS: traMADol 50 MG TAB PO SCH ×4 (07:51→23:40)
[2019-06-19] MEDS: FERROUS SULFATE 325 MG TAB PO SCH (07:51)
[2019-06-19] MEDS: PANTOPRAZOLE 40 MG TABLET PO SCH (07:51)
[2019-06-19] MEDS: MULTIVITAMINS, THERA 1 EACH TAB PO SCH (07:51)
[2019-06-19] MEDS ORDERED: GENTAMICIN 300 MG in SODIUM CHLORIDE 0.9% 100 ML IVPB SCH (08:00)
--- NOTE | 2019-06-19 08:24 | P.PN ---
Subjective Progress Note Date: 06/19/19 Principal diagnosis: This is a continue present 53-year-old white female essentially admitted for pyelonephritis with sepsis. The patient is actually improved and seems to be tolerating diet well. She had excessive thirst which is now been resolved with appropriate IV hydration. No diarrhea noted. I do appreciate infectious disease consultation. Objective - Vital Signs Vital signs: Vital Signs Temp 98 F 06/19/19 04:50 Pulse 90 06/19/19 04:50 Resp 20 06/19/19 04:50 BP 109/75 06/19/19 04:50 Pulse Ox 97 06/19/19 04:50 Intake & Output 06/18/19 06/19/19 06/19/19 18:59 06:59 18:59 Intake Total 1780 700 Balance 1780 700 Intake: IV 1300 Gentamicin 300 mg In 100 Sodium Chloride 0.9% 100 ml @ 107.5 mls/hr IVPB ONCE ONE Rx#:[id number] Sodium Chloride 0.9% 1, 1200 000 ml @ 150 mls/hr IV . Q6H40M [facility] Rx#:[id number] Oral 480 700 Other: # Voids 0 2 - Constitutional General appearance: Present: average body habitus - EENT Eyes: Absent: abnormal pupil - Neck Neck: Absent: lymphadenopathy - Respiratory Respiratory: bilateral: CTA - Cardiovascular Rhythm: regular Heart sounds: normal: S1, S2 - Gastrointestinal General gastrointestinal: Present: soft. Absent: tenderness - Integumentary Integumentary: Absent: rash - Neurologic Neurologic: Present: CNII-XII intact - Labs CBC & Chem 7: 06/18/19 07:43 06/18/19 07:43 Labs: Abnormal Lab Results - Last 24 Hours (Table) 06/18/19 06/18/19 06/18/19 Range/Units 07:43 12:05 16:08 RBC 3.36 L (3.80-5.40) m/uL Hgb 10.8 L (11.4-16.0) gm/dL Hct 33.1 L (34.0-46.0) % RDW 16.0 H (11.5-15.5) % Plt Count 141 L (150-450) k/uL Lymphocytes # 0.8 L (1.0-4.8) k/uL POC Glucose (mg/dL) 112 H (75-99) mg/dL Gentamicin Trough 3.9 H* ug/mL 06/18/19 Range/Units 20:09 RBC (3.80-5.40) m/uL Hgb (11.4-16.0) gm/dL Hct (34.0-46.0) % RDW (11.5-15.5) % Plt Count (150-450) k/uL Lymphocytes # (1.0-4.8) k/uL POC Glucose (mg/dL) 188 H (75-99) mg/dL Gentamicin Trough ug/mL Microbiology - Last 24 Hours (Table) 06/17/19 16:00 Urine Culture - Preliminary Urine,Voided Gram Neg Bacilli 06/17/19 16:00 Blood Culture Gram Stain - Preliminary Blood Blood Culture - Preliminary Gram Neg Bacilli 06/17/19 16:00 Blood Culture - Final Blood Assessment and Plan (1) Sepsis Current Visit: Yes Status: Acute Code(s): A41.9 - SEPSIS, UNSPECIFIED ORGANISM SNOMED Code(s): 97282915 (2) Dehydration Current Visit: Yes Status: Acute Code(s): E86.0 - DEHYDRATION SNOMED Code(s): 66838573 (3) Fever Current Visit: Yes Status: Acute Code(s): R50.9 - FEVER, UNSPECIFIED SNOMED Code(s): 931570909 (4) Pyelonephritis Current Visit: Yes Status: Acute Code(s): N12 - TUBULO-INTERSTITIAL NEPHRITIS, NOT SPCF ACUTE OR CHRONIC SNOMED Code(s): 02418154 (5) UTI (urinary tract infection) Current Visit: Yes Status: Acute Code(s): N39.0 - URINARY TRACT INFECTION, SITE NOT SPECIFIED SNOMED Code(s): 47943169 Plan: Continue one more day of IV antibiotic treatment. Dr. Perera's group will be covering for the weekend. Check CBC and CMP in a.m. Anticipate discharge in the next 24-48 hours.
[2019-06-19 10:29] LABS: HCT 30.9 % (34.0-46.0); HGB 9.9 gm/dL (11.4-16.0); MCH 31.6 pg (25.0-35.0); MCHC 32.1 g/dL (31.0-37.0); MCV 98.4 fL (80.0-100.0); Mean Platelet Volume 7.2; Platelet Count 145 k/uL (150-450); RBC 3.14 m/uL (3.80-5.40); RDW 15.3 % (11.5-15.5); WBC 5.1 k/uL (3.8-10.6)
[2019-06-19 10:45] LABS: ALT 70 U/L (9-52); AST 29 U/L (14-36); African American GFR (CKD) >90 (>60 ml/min/1.73 sqM); Albumin 3.1 g/dL (3.5-5.0); Alkaline Phosphatase 87 U/L (38-126); Anion Gap 9 mmol/L; Blood Urea Nitrogen 6 mg/dL (7-17); Carbon Dioxide 22 mmol/L (22-30); Chloride 109 mmol/L (98-107); Glucose 115 mg/dL (74-99); Potassium 3.7 mmol/L (3.5-5.1); Sodium 140 mmol/L (137-145); Total Bilirubin 0.3 mg/dL (0.2-1.3); Total Protein 5.6 g/dL (6.3-8.2)
[2019-06-19 12:31] LABS: Glucose,Whole Blood 83 mg/dL (75-99)
[2019-06-19 17:35] LABS: Glucose,Whole Blood 146 mg/dL (75-99)
--- NOTE | 2019-06-19 17:37 | P.PN ---
Subjective Progress Note Date: 06/19/19 This is a 53-year-old female who is history that over the past 6 months she has had frequent urinary tract infections. She states she has been treated in the past with Z-Carlitos, Bactrim and most recently with Cipro. She states that the UTI symptoms clear up and then about a week later she developed symptoms again. She recently moved to the [facility] and has been following with our clinic which she does not recall the name. She was started on Cipro approximate 4-5 days ago. She did have a recheck at the clinic on Saturday and was provided with a new antibiotic which she has not had filled as there was a problem with the transmission of the prescription to her pharmacy. She states that she does follow with someone every 3 months to have blood work done regarding her hypothyroidism. She was told that checked it was in normal range the last blood draw. Patient's urinary symptoms include pain with urination, frequency. She denies having any fever or chills. She is complaining of back pain in the low sacrum area which is chronic and she has received steroid injections for this. She also complains of vertigo which is improved. She denies any CVA pain. The patient presented to the [facility] emergency center found to have a fever 102.6, white count was 8.9, d-dimer 1.43, creatinine 1.04, lactic acid 1.5, ALT 104, alkaline phosphatase 134. TSH was 31.6. Urinalysis cloudy, leukoesterase moderate, Shannan BC is 142. Influenza testing negative. Urine culture is in progress. Blood culture is positive for gram-negative bacilli. Chest x-ray shows minimal left subsegmental atelectasis. CTA of the chest with showed no pulmonary embolism. Minimal scar and subsegmental atelectasis. Abdomen and pelvis CAT scan with contrast showed changes in the left kidney consistent with acute pyelonephritis. Mild left renal obstruction not entirely excluded. Patient was provided Zosyn, Levaquin and Rocephin in the emergency center. She is currently on gentamicin and Levaquin. 06/19/2019 patient is feeling somewhat better. As she has been since then the without better she's wondering when she gets to go home. She for she is feeling better. Headache is improved. Abdominal pain is improved. Appetite improved. Eating well. Objective - Vital Signs Vital signs: Vital Signs Temp 97.8 F 06/19/19 13:33 Pulse 76 06/19/19 13:33 Resp 18 06/19/19 13:33 BP 104/72 06/19/19 13:33 Pulse Ox 95 06/19/19 13:33 Intake & Output 06/18/19 06/19/19 06/19/19 18:59 06:59 18:59 Intake Total 2666 549 3293 Balance 8946 697 4156 Intake: IV 1300 500 Gentamicin 300 mg In 100 Sodium Chloride 0.9% 100 ml @ 107.5 mls/hr IVPB ONCE ONE Rx#:[id number] Gentamicin 300 mg In 100 Sodium Chloride 0.9% 100 ml @ 107.5 mls/hr IVPB Q24H [facility] Rx#:[id number] Sodium Chloride 0.9% 1, 1200 400 000 ml @ 50 mls/hr IV . Q20H [facility] Rx#:[id number] Oral 480 700 600 Other: # Voids 0 2 - Exam Gen: This is a morbidly obese 53-year-old female. She is sitting on the edge of the bed eating breakfast and appears to be comfortable and in no acute distress. HEENT: Head is atraumatic, normocephalic. Pupils equal, round. Sclerae is anicteric. Conjunctiva pink. Mucous members of the mouth are moist. Patient is edentulous. No lesions noted. NECK: Supple. No JVD. No lymphadenopathy. No thyromegaly. LUNGS: Clear to auscultation. No wheezes or rhonchi. No intercostal retractions. HEART: Regular rate and rhythm. No murmur. ABDOMEN: Soft. Bowel sounds are present. No masses. No abdominal, suprapubic tenderness. The left CVA tenderness that is yesterday is improved but not resolved EXTREMITIES: No pedal edema. No calf tenderness. Dorsalis pedis +2 bilaterally. NEUROLOGICAL: Patient is awake, alert and oriented x3. - Labs CBC & Chem 7: 06/19/19 09:41 06/19/19 09:41 Labs: Abnormal Lab Results - Last 24 Hours (Table) 06/18/19 06/19/19 06/19/19 Range/Units 20:09 09:41 09:41 RBC 3.14 L (3.80-5.40) m/uL Hgb 9.9 L (11.4-16.0) gm/dL Hct 30.9 L (34.0-46.0) % Plt Count 145 L (150-450) k/uL Chloride 109 H (98-107) mmol/L BUN 6 L (7-17) mg/dL Glucose 115 H (74-99) mg/dL POC Glucose (mg/dL) 188 H (75-99) mg/dL Calcium 8.0 L (8.4-10.2) mg/dL ALT 70 H (9-52) U/L Total Protein 5.6 L (6.3-8.2) g/dL Albumin 3.1 L (3.5-5.0) g/dL Microbiology - Last 24 Hours (Table) 06/17/19 16:00 Urine Culture - Final Urine,Voided Escherichia coli 06/18/19 09:34 Blood Culture - Preliminary Blood No Growth after 24 hours 06/17/19 16:00 Blood Culture Gram Stain - Final Blood Blood Culture - Preliminary Escherichia coli Laboratory Results WBC 5.1 k/uL (3.8-10.6) 06/19/19 09:41 RBC 3.14 m/uL (3.80-5.40) L 06/19/19 09:41 Hgb 9.9 gm/dL (11.4-16.0) L 06/19/19 09:41 Hct 30.9 % (34.0-46.0) L 06/19/19 09:41 MCV 98.4 fL (80.0-100.0) 06/19/19 09:41 MCH 31.6 pg (25.0-35.0) 06/19/19 09:41 MCHC 32.1 g/dL (31.0-37.0) 06/19/19 09:41 RDW 15.3 % (11.5-15.5) 06/19/19 09:41 Plt Count 145 k/uL (150-450) L 06/19/19 09:41 Neutrophils % 83 % 06/18/19 07:43 Lymphocytes % 11 % 06/18/19 07:43 Monocytes % 4 % 06/18/19 07:43 Eosinophils % 1 % 06/18/19 07:43 Basophils % 0 % 06/18/19 07:43 Neutrophils # 6.5 k/uL (1.3-7.7) 06/18/19 07:43 Lymphocytes # 0.8 k/uL (1.0-4.8) L 06/18/19 07:43 Monocytes # 0.3 k/uL (0-1.0) 06/18/19 07:43 Eosinophils # 0.1 k/uL (0-0.7) 06/18/19 07:43 Basophils # 0.0 k/uL (0-0.2) 06/18/19 07:43 Anisocytosis Slight 06/17/19 16:00 Macrocytosis Slight 06/18/19 07:43 PT 10.8 sec (9.0-12.0) 06/17/19 16:00 INR 1.0 (<1.2) 06/17/19 16:00 APTT 23.2 sec (22.0-30.0) 06/17/19 16:00 D-Dimer 1.43 mg/L FEU (<0.60) H 06/17/19 16:00 Sodium 140 mmol/L (137-145) 06/19/19 09:41 Potassium 3.7 mmol/L (3.5-5.1) 06/19/19 09:41 Chloride 109 mmol/L (98-107) H 06/19/19 09:41 Carbon Dioxide 22 mmol/L (22-30) 06/19/19 09:41 Anion Gap 9 mmol/L 06/19/19 09:41 BUN 6 mg/dL (7-17) L 06/19/19 09:41 Creatinine 0.72 mg/dL (0.52-1.04) 06/19/19 09:41 Est GFR (CKD-EPI)AfAm >90 (>60 ml/min/1.73 sqM) 06/19/19 09:41 Est GFR (CKD-EPI)NonAf >90 (>60 ml/min/1.73 sqM) 06/19/19 09:41 Glucose 115 mg/dL (74-99) H 06/19/19 09:41 POC Glucose (mg/dL) 83 mg/dL (75-99) 06/19/19 12:28 POC Glu Motion Study Technician Nasra Robertson 06/19/19 12:28 Plasma Lactic Acid Prakash 1.5 mmol/L (0.7-2.0) 06/17/19 16:00 Calcium 8.0 mg/dL (8.4-10.2) L 06/19/19 09:41 Phosphorus 3.1 mg/dL (2.5-4.5) 06/17/19 16:00 Magnesium 1.8 mg/dL (1.6-2.3) 06/17/19 16:00 Total Bilirubin 0.3 mg/dL (0.2-1.3) 06/19/19 09:41 AST 29 U/L (14-36) 06/19/19 09:41 ALT 70 U/L (9-52) H 06/19/19 09:41 Alkaline Phosphatase 87 U/L (38-126) 06/19/19 09:41 Creatine Kinase 77 U/L (30-135) 06/17/19 16:00 Troponin I <0.012 ng/mL (0.000-0.034) 06/17/19 16:00 NT-Pro-B Natriuret Pep 154 pg/mL 06/17/19 16:00 Total Protein 5.6 g/dL (6.3-8.2) L 06/19/19 09:41 Albumin 3.1 g/dL (3.5-5.0) L 06/19/19 09:41 TSH 31.600 mIU/L (0.465-4.680) H 06/17/19 16:00 Urine Color Yellow 06/17/19 16:00 Urine Appearance Cloudy (Clear) H 06/17/19 16:00 Urine pH 6.0 (5.0-8.0) 06/17/19 16:00 Ur Specific [place] 1.016 (1.001-1.035) 06/17/19 16:00 Urine Protein 1+ (Negative) H 06/17/19 16:00 Urine Glucose (UA) Negative (Negative) 06/17/19 16:00 Urine Ketones Negative (Negative) 06/17/19 16:00 Urine Blood Trace (Negative) H 06/17/19 16:00 Urine Nitrite Negative (Negative) 06/17/19 16:00 Urine Bilirubin Negative (Negative) 06/17/19 16:00 Urine Urobilinogen 6.0 mg/dL (<2.0) 06/17/19 16:00 Ur Leukocyte Esterase Moderate (Negative) H 06/17/19 16:00 Urine RBC 2 /hpf (0-5) 06/17/19 16:00 Urine WBC 142 /hpf (0-5) H 06/17/19 16:00 Ur Squamous Epith Cells 4 /hpf (0-4) 06/17/19 16:00 Hyaline Casts 1 /lpf (0-2) 06/17/19 16:00 Urine Mucus Rare /hpf (None) H 06/17/19 16:00 Gentamicin Trough 3.9 ug/mL H* 06/18/19 16:08 Influenza Type A RNA Not Detected (Not Detectd) 06/17/19 16:10 Influenza Type B (PCR) Not Detected (Not Detectd) 06/17/19 16:10 Microbiology 06/17/19 16:00 Urine,Voided Urine Culture - Final Escherichia coli 06/18/19 09:34 Blood Blood Culture - Preliminary No Growth after 24 hours 06/17/19 16:00 Blood Blood Culture Gram Stain - Final 06/17/19 16:00 Blood Blood Culture - Preliminary Escherichia coli 06/17/19 16:00 Blood Blood Culture - Final - Imaging and Cardiology CT scan - abdomen: report reviewed (Pyelonephritis of the left kidney is noted) Assessment and Plan (1) Pyelonephritis Narrative/Plan: 53 -year-old woman woman who has had several bouts of infection of her urinary system. She's been treated with antibiotic therapy that includes azithromycin, Bactrim and ciprofloxacin. Despite these antibiotics she shortly thereafter develops ongoing symptoms of her urinary infection. She now presents to Hospital of high-grade fever and not feeling well. 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 She relates that she works about 90 hours per week in the care of the home care patients in the [facility] where she provides often hospice care. Relates that she's been ill for the last of the time and is worried about getting back to work quickly. We discussed that her imaging studies reveal evidence of the pyelonephritis and is imperative that the pathogen is found inappropriate therapy is given. Given the recurrent nature and the discomfort she has, may do well with urology consult even as an outpatient to further evaluate this difficulty because of the recurrent nature. Current Visit: Yes Status: Acute Code(s): N12 - TUBULO-INTERSTITIAL NEPHR ITIS, NOT SPCF ACUTE OR CHRONIC SNOMED Code(s): 44790270
[2019-06-19] MEDS: ACETAMINOPHEN TAB 325 MG TAB PO PRN (20:31)
[2019-06-19] MEDS: TEMAZEPAM 15 MG CAP PO PRN (20:55)
[2019-06-19 20:56] LABS: Glucose,Whole Blood 95 mg/dL (75-99)
[2019-06-19 22:34] VITALS: RESP 16
[2019-06-20] MEDS: LEVOFLOXACIN 250MG-D5W PMX 250 MG in DEXTROSE/WATER 1 50ML.BAG IVPB SCH (05:46)
[2019-06-20 07:14] LABS: Glucose,Whole Blood 85 mg/dL (75-99)
[2019-06-20] MEDS: INSULIN ASPART (NovoLOG) 100 UNIT/ML VIAL SQ SCH ×4 (08:55→22:06)
[2019-06-20 09:04] LABS: HCT 31.7 % (34.0-46.0); HGB 10.2 gm/dL (11.4-16.0); Hypochromasia Slight; MCH 32.1 pg (25.0-35.0); MCHC 32.3 g/dL (31.0-37.0); MCV 99.4 fL (80.0-100.0); Macrocytosis Slight; Mean Platelet Volume 7.8; Platelet Count 155 k/uL (150-450); RBC 3.19 m/uL (3.80-5.40); RDW 15.7 % (11.5-15.5)
[2019-06-20] MEDS: metFORMIN 500 MG TAB PO SCH ×2 (09:07→22:04)
[2019-06-20] MEDS: FERROUS SULFATE 325 MG TAB PO SCH (09:07)
[2019-06-20] MEDS: traMADol 50 MG TAB PO SCH ×3 (09:07→17:18)
[2019-06-20] MEDS: CALCIUM CARBONATE 500 MG CHEWABLE PO SCH (09:07)
[2019-06-20] MEDS: MULTIVITAMINS, THERA 1 EACH TAB PO SCH (09:07)
[2019-06-20] MEDS: PANTOPRAZOLE 40 MG TABLET PO SCH (09:07)
[2019-06-20] MEDS: ENOXAPARIN 40 MG/0.4 ML SYRINGE SQ SCH (09:07)
[2019-06-20] MEDS: SODIUM CHLORIDE 0.9% 1,000 ML IV SCH (09:08)
[2019-06-20 09:15] LABS: ALT 70 U/L (9-52); AST 28 U/L (14-36); African American GFR (CKD) >90 (>60 ml/min/1.73 sqM); Albumin 3.3 g/dL (3.5-5.0); Alkaline Phosphatase 87 U/L (38-126); Anion Gap 9 mmol/L; Blood Urea Nitrogen 6 mg/dL (7-17); Calcium 8.3 mg/dL (8.4-10.2); Carbon Dioxide 25 mmol/L (22-30); Chloride 109 mmol/L (98-107); Glucose 130 mg/dL (74-99); Potassium 3.8 mmol/L (3.5-5.1); Sodium 143 mmol/L (137-145); Total Bilirubin 0.2 mg/dL (0.2-1.3); Total Protein 5.9 g/dL (6.3-8.2)
[2019-06-20 10:13] LABS: T4, Free (Free Thyroxine) 0.97 ng/dL (0.78-2.19)
[2019-06-20 12:01] LABS: Glucose,Whole Blood 121 mg/dL (75-99)
--- NOTE | 2019-06-20 12:30 | P.PN ---
Subjective On-call hospitalist covering for Dr. Moody over the weekend This is a pleasant 53 years old female with past medical history of chronic back pain, diabetes mellitus, hypothyroidism, status post bariatric surgery. She presents with signs and symptoms of UTI and pyelonephritis, mainly on the left side. Patient has been evaluated by ID team and she was started on antibiotics including ceftriaxone and Levaquin as well as gentle hydration. Patient sought improving better. She feels generally weak. Today patient is afebrile. Hemoglobin stable at 10.2. No leukocytosis and creatinine 0.8. TSH is 50, while free T4 is 0.9. We'll check renal ultrasound. Urine culture is growing E. coli. Review of systems CONSTITUTIONAL: No fever, no malaise, no fatigue. HEENT: No recent visual problems or hearing problems. Denied any sore throat. CARDIOVASCULAR: No orthopnea, PND, no palpitations, no syncope. PULMONARY: No shortness of breath, no cough, no hemoptysis. GASTROINTESTINAL: No diarrhea, no nausea, no vomiting, no abdominal pain. Nor moactive bowel sounds. NEUROLOGICAL: No headaches, no weakness, no numbness. HEMATOLOGICAL: Denies any bleeding or petechiae. MUSCULOSKELETAL/RHEUMATOLOGICAL: Denies any joint pain, swelling, or any muscle pain. ENDOCRINE: Denies any polyuria or polydipsia. Active Medications Generic Name Dose Route Start Last Admin Trade Name Freq PRN Reason Stop Dose Admin Acetaminophen 650 mg 06/17/19 21:57 06/19/19 20:31 Tylenol Tab PO 650 mg Q6HR PRN Administration Fever and/ or Pain Calcium Carbonate/Glycine 1,000 mg 06/18/19 09:00 06/20/19 09:07 Tums PO 1,000 mg DAILY [facility] Administration Enoxaparin Sodium 40 mg 06/18/19 09:00 06/20/19 09:07 Lovenox SQ 40 mg DAILY AND[facility] Administration Famotidine 20 mg 06/20/19 21:00 Pepcid IV Q12HR [facility] Ferrous Sulfate 325 mg 06/18/19 09:00 06/20/19 09:07 Feosol PO 325 mg DAILY AND[facility]S Administration Heparin Sodium (Porcine) 5,000 unit 06/20/19 21:00 Heparin SQ Q12HR [facility] Sodium Chloride 1,000 mls @ 50 mls/hr 06/17/19 19:15 06/20/19 09:08 Saline 0.9% IV Not Given .Q20H [facility] Ceftriaxone Sodium 2 gm/ 50 mls @ 100 mls/hr 06/19/19 16:00 06/20/19 09:07 Sodium Chloride IVPB 100 mls/hr Q24HR [facility] Administration Insulin Aspart 0 unit 06/18/19 07:30 06/20/19 12:13 Novolog SQ Not Given ACHS [facility] Protocol Levothyroxine Sodium 50 mcg 06/21/19 12:28 Synthroid PO DAILY@0630 AND[facility]S Metformin HCl 1,000 mg 06/18/19 09:00 06/20/19 09:07 Glucophage PO 1,000 mg BID ANDR[facility]S Administration Multivitamins 1 each 06/18/19 09:00 06/20/19 09:07 Theragran PO 1 each DAILY AND[facility]S Administration Pantoprazole Sodium 40 mg 06/19/19 07:30 06/20/19 09:07 Protonix PO 40 mg AC-BRKFST AND[facility]S Administration Temazepam 15 mg 06/17/19 22:56 06/19/19 20:55 Restoril PO 15 mg HS PRN Administration Insomnia Tramadol HCl 50 mg 06/18/19 09:00 06/20/19 09:07 Ultram PO 50 mg QID AND[facility]S Administration Objective - Vital Signs Vital signs: Vital Signs Temp 97.5 F L 06/20/19 06:00 Pulse 77 06/20/19 06:00 Resp 16 06/20/19 06:00 BP 112/77 06/20/19 06:00 Pulse Ox 94 L 06/20/19 06:00 Intake & Output 06/19/19 06/20/19 06/20/19 18:59 06:59 18:59 Intake Total 1100 50 Balance 1100 50 Intake: IV 500 Gentamicin 300 mg In 100 Sodium Chloride 0.9% 100 ml @ 107.5 mls/hr IVPB Q24H [facility] Rx#:[id number] Sodium Chloride 0.9% 1, 400 000 ml @ 50 mls/hr IV . Q20H [facility] Rx#:[id number] Intake, IV Titration 50 Amount Levofloxacin 250Mg-D5w 50 Pmx 250 mg In Dextrose/ Water 1 50ml.bag @ 50 mls /hr IVPB Q24H [facility] Rx#: [id number] Oral 600 Other: # Voids 1 - Labs CBC & Chem 7: 06/20/19 08:10 06/20/19 08:10 Labs: Abnormal Lab Results - Last 24 Hours (Table) 06/19/19 06/20/19 06/20/19 Range/Units 17:31 08:10 08:10 RBC 3.19 L (3.80-5.40) m/uL Hgb 10.2 L (11.4-16.0) gm/dL Hct 31.7 L (34.0-46.0) % RDW 15.7 H (11.5-15.5) % Chloride 109 H (98-107) mmol/L BUN 6 L (7-17) mg/dL Glucose 130 H (74-99) mg/dL POC Glucose (mg/dL) 146 H (75-99) mg/dL Calcium 8.3 L (8.4-10.2) mg/dL ALT 70 H (9-52) U/L Total Protein 5.9 L (6.3-8.2) g/dL Albumin 3.3 L (3.5-5.0) g/dL TSH 50.100 H (0.465-4.680) mIU/L 06/20/19 Range/Units 11:56 RBC (3.80-5.40) m/uL Hgb (11.4-16.0) gm/dL Hct (34.0-46.0) % RDW (11.5-15.5) % Chloride (98-107) mmol/L BUN (7-17) mg/dL Glucose (74-99) mg/dL POC Glucose (mg/dL) 121 H (75-99) mg/dL Calcium (8.4-10.2) mg/dL ALT (9-52) U/L Total Protein (6.3-8.2) g/dL Albumin (3.5-5.0) g/dL TSH (0.465-4.680) mIU/L Microbiology - Last 24 Hours (Table) 06/18/19 09:34 Blood Culture - Preliminary Blood No Growth after 48 hours 06/17/19 16:00 Blood Culture Gram Stain - Final Blood Blood Culture - Final Escherichia coli 06/17/19 16:00 Urine Culture - Final Urine,Voided Escherichia coli Assessment and Plan Assessment: Acute urinary tract infection Significantly elevated TSH with T4 within normal limits, suspicious for hyperthyroidism Chronic back pain Diabetes mellitus Obesity, status post bariatric surgery. Plan: This is a pleasant 53 years old female who presents with UTI. Patient is on antibiotics as per infectious team recommendation. Patient is currently on ceftriaxone. Discontinue levofloxacin. Start patient on small dose of thyroid and follow-up thyroid function test as an outpatient. Check limited to try peritoneal ultrasound for renal system. Continue with gentle hydration. Labs and medication were reviewed.. Continue same treatment. Continue with symptomatic treatment. Resume home medication. Monitor lytes and vitals. DVT and GI prophylaxis. Further recommendations of the clinical course of the p atient DVT prophylaxis: Subcutaneous heparin GI Prophylaxis: Pepcid PT/OT: Pending Prognosis is guarded
--- NOTE | 2019-06-20 13:24 | US ---
EXAMINATION TYPE: US kidneys/renal and bladder DATE OF EXAM: 06/20/2019 COMPARISON: NONE CLINICAL HISTORY: UTI with pyelonephritis.. EXAM MEASUREMENTS: Right Kidney: 11.3 x 4.4 x 4.7 cm Left Kidney: 11.3 x 5.8 x 5.1 cm Right Kidney: Inferior pole slightly obscured by bowel gas, otherwise wnl Left Kidney: some possible mild back up of collecting system Bladder: wnl There is no evidence for hydronephrosis at this point in time. No nephrolithiasis is seen. No bárbara s are identified. The urinary bladder is anechoic. Neither ureteral jet were seen. IMPRESSION: NORMAL RENAL ULTRASOUND.
[2019-06-20 16:51] LABS: Glucose,Whole Blood 128 mg/dL (75-99)
[2019-06-20] MEDS ORDERED: HEPARIN SODIUM,PORCINE 5,000 UNIT/ML 1 ML VIAL SQ SCH (21:00)
[2019-06-20 21:05] LABS: Glucose,Whole Blood 170 mg/dL (75-99)
[2019-06-20] MEDS: FAMOTIDINE 20 MG/2 ML VIAL IV SCH (22:05)
[2019-06-21] MEDS: traMADol 50 MG TAB PO SCH ×5 (00:47→20:56)
[2019-06-21] MEDS: TEMAZEPAM 15 MG CAP PO PRN (02:12)
[2019-06-21] MEDS: SODIUM CHLORIDE 0.9% 1,000 ML IV SCH (05:07)
[2019-06-21] MEDS: LEVOTHYROXINE 50 MCG TAB PO SCH (05:30)
[2019-06-21 07:15] LABS: Glucose,Whole Blood 88 mg/dL (75-99)
[2019-06-21] MEDS: INSULIN ASPART (NovoLOG) 100 UNIT/ML VIAL SQ SCH ×4 (08:20→20:57)
[2019-06-21] MEDS: CALCIUM CARBONATE 500 MG CHEWABLE PO SCH (08:20)
[2019-06-21] MEDS: MULTIVITAMINS, THERA 1 EACH TAB PO SCH (08:20)
[2019-06-21] MEDS: metFORMIN 500 MG TAB PO SCH ×2 (08:21→20:56)
[2019-06-21] MEDS: FAMOTIDINE 20 MG/2 ML VIAL IV SCH (08:21)
[2019-06-21] MEDS: FERROUS SULFATE 325 MG TAB PO SCH (08:21)
[2019-06-21] MEDS: ENOXAPARIN 40 MG/0.4 ML SYRINGE SQ SCH (08:21)
[2019-06-21] MEDS: PANTOPRAZOLE 40 MG TABLET PO SCH (08:21)
--- NOTE | 2019-06-21 09:07 | P.PN ---
Subjective On-call hospitalist covering for Dr. Moody over the weekend This is a pleasant 53 years old female with past medical history of chronic back pain, diabetes mellitus, hypothyroidism, status post bariatric surgery. She presents with signs and symptoms of UTI and pyelonephritis, mainly on the left side. Patient has been evaluated by ID team and she was started on antibiotics including ceftriaxone and Levaquin as well as gentle hydration. Patient sought improving better. She feels generally weak. Today patient is afebrile. Hemoglobin stable at 10.2. No leukocytosis and creatinine 0.8. TSH is 50, while free T4 is 0.9. We'll check renal ultrasound. Urine culture is growing E. coli. 06/21/2019 Patient continued improving, her flank pain still comes and goes and improving. Her dysuria has completely resolved however she still have some post void dribbling. Her headache improved significantly down from 09/10 to 2-3/10 today. She complained from diarrhea but no abdominal pain or nausea vomiting, we will check for C. diff. Patient states that she has left upper chest wall port for IV access for the last 10 years and she goes to flush it with her doctor every 6 weeks. She had this port when she had her bariatric surgery 10 years ago, she uses it at times to get IV iron. Patient wants to keep the post for now. Risks benefits are explained Patient she has abnormal thyroid test, however she still needs she was recently increased her levothyroxine from 75 g to 125 g and she was taken it till today she's been admitted to the hospital, it looks like has been managed as her home medication, we are are going to reinstate her levothyroxine and 0.25 g and patient agrees. Patient says that she takes her monthly injection for vitamin B12, her due dose is tomorrow. Patient referred to her PCP Dr. Moody and the nurse communication was placed in this regards. Objective - Vital Signs Vital signs: Vital Signs Temp 97.6 F 06/21/19 05:58 Pulse 78 06/21/19 05:58 Resp 16 06/21/19 05:58 BP 122/85 06/21/19 05:58 Pulse Ox 96 06/21/19 05:58 Intake & Output 06/20/19 06/21/19 06/21/19 18:59 06:59 18:59 Intake Total 1090 Balance 1090 Intake: Intake, IV Titration 550 Amount Sodium Chloride 0.9% 1, 450 000 ml @ 50 mls/hr IV . Q20H [facility] Rx#:[id number] cefTRIAXone 2 gm In 100 Sodium Chloride 0.9% 50 ml @ 100 mls/hr IVPB Q24HR [facility] Rx#:[id number] Oral 540 Other: # Voids 3 4 # Bowel Movements 2 2 - Exam GENERAL: The patient is alert and oriented x3, not in any acute distress. Well developed, well nourished. HEENT: Pupils are round and equally reacting to light. EOMI. No scleral icterus. No conjunctival pallor. Normocephalic, atraumatic. No pharyngeal erythema. No thyromegaly. CARDIOVASCULAR: S1 and S2 present. No murmurs, rubs, or gallops. -PULMONARY: Chest is clear to auscultation, no wheezing or crackles. Left upper chest wall port for IV access, in a Place ABDOMEN: Soft, nontender, nondistended, normoactive bowel sounds. No palpable organomegaly. No CVA tenderness MUSCULOSKELETAL: No joint swelling or deformity. EXTREMITIES: No cyanosis, clubbing, or pedal edema. NEUROLOGICAL: Gross neurological examination did not reveal any focal deficits. SKIN: No rashes. - Labs CBC & Chem 7: 06/20/19 08:10 06/20/19 08:10 Labs: Abnormal Lab Results - Last 24 Hours (Table) 06/20/19 06/20/19 06/20/19 Range/Units 08:10 08:10 11:56 RBC 3.19 L (3.80-5.40) m/uL Hgb 10.2 L (11.4-16.0) gm/dL Hct 31.7 L (34.0-46.0) % RDW 15.7 H (11.5-15.5) % Chloride 109 H (98-107) mmol/L BUN 6 L (7-17) mg/dL Glucose 130 H (74-99) mg/dL POC Glucose (mg/dL) 121 H (75-99) mg/dL Calcium 8.3 L (8.4-10.2) mg/dL ALT 70 H (9-52) U/L Total Protein 5.9 L (6.3-8.2) g/dL Albumin 3.3 L (3.5-5.0) g/dL TSH 50.100 H (0.465-4.680) mIU/L 06/20/19 06/20/19 Range/Units 16:48 21:04 RBC (3.80-5.40) m/uL Hgb (11.4-16.0) gm/dL Hct (34.0-46.0) % RDW (11.5-15.5) % Chloride (98-107) mmol/L BUN (7-17) mg/dL Glucose (74-99) mg/dL POC Glucose (mg/dL) 128 H 170 H (75-99) mg/dL Calcium (8.4-10.2) mg/dL ALT (9-52) U/L Total Protein (6.3-8.2) g/dL Albumin (3.5-5.0) g/dL TSH (0.465-4.680) mIU/L Microbiology - Last 24 Hours (Table) 06/18/19 09:34 Blood Culture - Preliminary Blood No Growth after 48 hours Assessment and Plan Assessment: Acute urinary tract infection hypothyroidism, restart her dose of levothyroxine at 125 g as per patient Diarrhea, rule out C. diff Chronic back pain Diabetes mellitus Obesity, status post bariatric surgery. Plan: This is a pleasant 53 years old female who presents with UTI. Patient is on antibiotics as per infectious team recommendation. Patient is currently on ceftriaxone. Discontinue levofloxacin. Start patient on her home dose of levothyroxine 125 g. Follow-up C. diff test which is ordered.. Unremarkable ultrasound for renal system. Continue with gentle hydration. Labs and medication were reviewed.. Continue same treatment. Continue with symptomatic treatment. Resume home medication. Monitor lytes and vitals. DVT and GI prophylaxis. Further recommendations of the clinical course of the patient DVT prophylaxis: Subcutaneous heparin GI Prophylaxis: Pepcid PT/OT: Patient is walking with no difficulty and functioning within normal limits Prognosis is guarded
[2019-06-21 12:15] LABS: Glucose,Whole Blood 82 mg/dL (75-99)
[2019-06-21 17:01] LABS: Glucose,Whole Blood 108 mg/dL (75-99)
[2019-06-21 20:28] LABS: Glucose,Whole Blood 130 mg/dL (75-99)
[2019-06-21] MEDS: FAMOTIDINE 20 MG TAB PO SCH (20:56)
[2019-06-22] MEDS: LEVOTHYROXINE 50 MCG TAB PO SCH (05:30)
[2019-06-22] MEDS: SODIUM CHLORIDE 0.9% 1,000 ML IV SCH (05:30)
[2019-06-22] MEDS: ACETAMINOPHEN TAB 325 MG TAB PO PRN (05:35)
[2019-06-22 06:53] LABS: Glucose,Whole Blood 103 mg/dL (75-99)
[2019-06-22] MEDS: INSULIN ASPART (NovoLOG) 100 UNIT/ML VIAL SQ SCH ×2 (07:36→11:55)
[2019-06-22] MEDS: MULTIVITAMINS, THERA 1 EACH TAB PO SCH (07:38)
[2019-06-22] MEDS: FAMOTIDINE 20 MG TAB PO SCH (07:38)
[2019-06-22] MEDS: FERROUS SULFATE 325 MG TAB PO SCH (07:38)
[2019-06-22] MEDS: CALCIUM CARBONATE 500 MG CHEWABLE PO SCH (07:39)
[2019-06-22] MEDS: metFORMIN 500 MG TAB PO SCH (07:39)
[2019-06-22] MEDS: traMADol 50 MG TAB PO SCH ×2 (07:39→12:00)
[2019-06-22] MEDS: ENOXAPARIN 40 MG/0.4 ML SYRINGE SQ SCH (07:40)
--- NOTE | 2019-06-22 07:41 | P.DS ---
Providers Date of admission: 06/17/19 19:16 Expected date of discharge: 06/22/19 Attending physician: Nimesh Moody Consults: 06/18/19 05:34 Consult Physician Routine Consulting Provider: Rubens Srinivasan Consult Reason/Comments: Sepsis Do you want consulting provider notified?: Yes, Notify in am Primary care physician: Nimesh Moody - Discharge Diagnosis(es) (1) Sepsis Current Visit: Yes Status: Acute (2) Dehydration Current Visit: Yes Status: Acute (3) Fever Current Visit: Yes Status: Acute (4) Pyelonephritis Current Visit: Yes Status: Acute (5) UTI (urinary tract infection) Current Visit: Yes Status: Acute Hospital Course: Patient admitted with pyelonephritis and UTI with sepsis. The patient was started on appropriate antibiotic treatment and is now on ceftriaxone. The patient is tolerating diet without difficulty. We will discharge once cleared by consultants Patient Condition at Discharge: Fair Plan - Discharge Summary New Discharge Prescriptions: New cefTRIAXone [Rocephin] 2,000 mg IVPB Q24HR #21 vial Cefuroxime Axetil [Ceftin] 500 mg PO BID #14 tab Levothyroxine Sodium [Synthroid] 50 mcg PO DAILY@0630 tab Continue Ferrous Sulfate [Iron (65 MG Elemental)] 325 mg PO DAILY Multivitamins, Thera [Multivitamin (formulary)] 1 tab PO DAILY Ciprofloxacin HCl [Cipro] 250 mg PO Q12HR metFORMIN HCL 1,000 mg PO BID Calcium Carbonate [Calcium] 1,200 mg PO DAILY Discharge Medication List Calcium Carbonate [Calcium] 1,200 mg PO DAILY 06/17/19 [History] Ciprofloxacin HCl [Cipro] 250 mg PO Q12HR 06/17/19 [History] Ferrous Sulfate [Iron (65 MG Elemental)] 325 mg PO DAILY 06/17/19 [History] Multivitamins, Thera [Multivitamin (formulary)] 1 tab PO DAILY 06/17/19 [Histor y] metFORMIN HCL 1,000 mg PO BID 06/17/19 [History] cefTRIAXone [Rocephin] 2,000 mg IVPB Q24HR #21 vial 06/19/19 [Rx] Cefuroxime Axetil [Ceftin] 500 mg PO BID #14 tab 06/22/19 [Rx] Levothyroxine Sodium [Synthroid] 50 mcg PO DAILY@0630 tab 06/22/19 [Rx] Follow up Appointment(s)/Referral(s): Rubens Srinivaasn MD [STAFF PHYSICIAN] - 06/21/19 10:30 am () Nimesh Moody MD [Primary Care Provider] - 1-2 days Ambulatory/Diagnostic Orders: Basic Metabolic Panel [LAB.AMB] Location: None Selected Complete Blood Count w/diff [LAB.AMB] Location: None Selected
--- NOTE | 2019-06-22 09:45 | CDI ---
Documentation Clarification Form Date: 06/22/2019 9:29:16 AM From: Tiffany Davis RN, CCDS Admit Date: 06/17/2019 7:16:00 PM Patient Name: Marie Lu Visit Number: [id number] ATTENTION: The Clinical Documentation Specialists (CDI) and [facility] Coding Staff appreciate your assistance in clarifying documentation. Please respond to the clarification below the line at the bottom and electronically sign. The CDI & [facility] Coding staff will review the response and follow-up if needed. Please note: Queries are made part of the Legal Health Record. If you have any questions, please contact the author of this message via ITS. Dr. Nimesh Moody A decline in the Hgb and Hct have been noted through out the patient stay. Can you please provide clinical significance? History/Risk Factors: DM, Frequent UTI, Bariatric surgery Clinical indicators: 06/02 D/C Summary: "Sepsis, Dehydration, Fever, Pyelonephritis, UTI." Hemoglobin: 13.4/10.8/9.9/10.2 Hematocrit:39.6/33.1/30.9/31.7 Treatment: Labs AM Daily 2.5 L IVF Bolus In order to capture the severity of condition, please clarify the clinical significance of the declining Hgb and Hct and etiology if known: Chronic blood loss anemia Iron deficiency anemia Nutritional anemia Anemia of chronic disease Unable to determine Other, please specify (Last Revision: September 2017) MTDD
[2019-06-22 11:53] LABS: Glucose,Whole Blood 104 mg/dL (75-99)
[2019-06-22 14:36] VITALS: BP 114/78; PULSE 86; TEMP 97.8
== END 2019-06-22 16:45 | disposition home or self-care (01) | DRG 872 ==
LOC: EC 14:42 → 4MS4W 19:15 → OBSVTOIN 19:16 → 4MS4W 21:35
PROVIDERS: ADMIT Family Medicine; ATTEND Family Medicine
DX: A41.9 Sepsis, unspecified organism (principal); N10 Acute pyelonephritis; Z68.41 Body mass index [BMI] 40.0-44.9, adult; E66.01 Morbid (severe) obesity due to excess calories; E03.9 Hypothyroidism, unspecified; E11.9 Type 2 diabetes mellitus without complications; E86.0 Dehydration; G89.29 Other chronic pain; M54.9 Dorsalgia, unspecified; Z79.84 Long term (current) use of oral hypoglycemic drugs; Z87.440 Personal history of urinary (tract) infections; Z98.84 Bariatric surgery status; Z88.0 Allergy status to penicillin; Z91.040 Latex allergy status
CPT/HCPCS: 36415; 71046; 71275; 74177; 76770; 80053; 80170; 81001; 82550; 83605; 83735; 83880; 84100; 84439; 84443; 84484; 85025; 85027; 85379; 85610; 85730; 87040; 87077; 87086; 87186; 87324; 87502; 93005; 96361; 96365; 96375; 99285

== ENCOUNTER → 2019-07-02 | Day surgery (SDC) | payer OTHER ==
[~2019-07-02] MED LIST: IOPAMIDOL-250 50ML BTL IV ONE; SODIUM CHLORIDE 0.9% 250 ML IV ONE
[2019-07-02 16:18] VITALS: BP 116/74; PULSE 85; RESP 16; TEMP 98
== END ==
LOC: CATHCVL 13:12
PROVIDERS: ATTEND Radiology Diagnostic Radiology
DX: T82.898A Other specified complication of vascular prosthetic devices, implants and grafts, initial encounter (principal); N39.0 Urinary tract infection, site not specified; E78.5 Hyperlipidemia, unspecified; E03.9 Hypothyroidism, unspecified; E11.65 Type 2 diabetes mellitus with hyperglycemia; D64.9 Anemia, unspecified; G47.00 Insomnia, unspecified; H91.92 Unspecified hearing loss, left ear; M62.830 Muscle spasm of back; M54.5 Low back pain; G89.29 Other chronic pain; E61.1 Iron deficiency; Z98.84 Bariatric surgery status; E66.01 Morbid (severe) obesity due to excess calories; Z68.41 Body mass index [BMI] 40.0-44.9, adult; Z78.0 Asymptomatic menopausal state; Z79.890 Hormone replacement therapy; Z79.84 Long term (current) use of oral hypoglycemic drugs; Z79.899 Other long term (current) drug therapy; Z79.891 Long term (current) use of opiate analgesic; Z91.040 Latex allergy status; Z88.5 Allergy status to narcotic agent
CPT/HCPCS: 36598; 76937; 36410; C1751; Q9966

== ENCOUNTER 2019-07-21 09:23 | Day surgery (SDC) | payer OTHER ==
[2019-07-20 08:44] VITALS: BMI 38.0
--- NOTE | 2019-07-20 15:09 | P.GSHP ---
History of Present Illness H&P Date: 07/20/19 Chief Complaint: Nonfunctioning Mediport This patient has had a Mediport on the left side for around 10 years. It is no longer functional. She requires IV access for multiple medical issues. She is status post gastric bypass and suffers from an iron deficiency anemia. She sometimes requires iron infusions. She is a very difficult IV access. - Constitutional Constitutional: Denies chills, Denies fever - EENT Eyes: denies blurred vision, denies pain Ears, nose, mouth and throat: Denies headache, Denies sore throat - Cardiovascular Cardiovascular: Denies chest pain, Denies shortness of breath - Respiratory Respiratory: Denies cough, Denies excessive sputum, Denies hemoptysis - Gastrointestinal Comment: Status post gastric bypass Gastrointestinal: Denies abdominal pain, Denies diarrhea, Denies nausea, Denies vomiting - Genitourinary (Female) Genitourinary: Denies dysuria, Denies hematuria - Genitourinary (Male) Genitourinary: Denies dysuria, Denies hematuria - Musculoskeletal Musculoskeletal: Denies myalgias - Integumentary Integumentary: Denies pruritus, Denies rash - Neurological Neurological: Denies numbness, Denies weakness - Psychiatric Psychiatric: Denies anxiety, Denies depression - Endocrine Endocrine: Denies fatigue, Denies weight change - Hematologic/Lymphatic Comment: Chronic iron deficiency anemia Hematologic/Lymphatic: Denies easy bleeding, Denies easy bruising, Denies lymphedema - Allergic/Immunologic Allergic/Immunologic: Denies urticaria Past Medical History Past Medical History: Diabetes Mellitus, Thyroid Disorder Additional Past Medical History / Comment(s): CHRONIC BACK PAIN. Fatigue. Treated for sepsis 6 weeks ago. Had UTI prior to that for 4-5 months. History of Any Multi-Drug Resistant Organisms: None Reported Past Surgical History: Bariatric Surgery Additional Past Surgical History / Comment(s): WEIGHT LOSS SURGERY- SLEEVE BYPASS. Tummy tuck, excess skin removed. Past Anesthesia/Blood Transfusion Reactions: No Reported Reaction Past Psychological History: No Psychological Hx Reported Smoking Status: Never smoker Past Alcohol Use History: None Reported Past Drug Use History: None Reported - Past Family History Mother Family Medical History: Cancer Additional Family Medical History / Comment(s): Breast cancer. Sister(s) Family Medical History: Cancer Additional Family Medical History / Comment(s): Breast cancer. Medications and Allergies Home Medications Medication Instructions Recorded Confirmed Type Calcium Carbonate [Calcium] 1,200 mg PO DAILY 06/17/19 07/20/19 History Ciprofloxacin HCl [Cipro] 250 mg PO Q12HR 06/17/19 07/20/19 History Ferrous Sulfate [Iron (65 MG 325 mg PO DAILY 06/17/19 07/20/19 History Elemental)] Multivitamins, Thera [Multivitamin 1 tab PO DAILY 06/17/19 07/20/19 History (formulary)] metFORMIN HCL 1,000 mg PO BID 06/17/19 07/20/19 History cefTRIAXone [Rocephin] 2,000 mg IVPB Q24HR #21 vial 06/19/19 07/20/19 Rx Cefuroxime Axetil [Ceftin] 500 mg PO BID #14 tab 06/22/19 07/20/19 Rx Levothyroxine Sodium [Synthroid] 50 mcg PO HS 07/20/19 07/20/19 History Allergies Allergy/AdvReac Type Severity Reaction Status Date / Time latex Allergy Anaphylaxis Verified 07/20/19 08:26 Penicillins Allergy Anaphylaxis Verified 07/20/19 08:26 Surgical - Exam Osteopathic Statement: *. No significant issues noted on an osteopathic structural exam other than those noted in the History and Physical/Consult. - General well developed, well nourished, no distress, obese - Eyes normal ocular movement, no icteric - ENT no hearing loss, no congestion - Neck no masses, no bruits, trachea midline - Respiratory normal expansion, normal respiratory effort, clear to auscultation - Cardiovascular Rhythm: regular - Abdomen Abdomen: soft, non tender, no guarding, no rigid, no rebound - Integumentary no rash, no abnormal pigmentation - Neurologic no disoriented, no combative - Musculoskeletal normal gait, normal posture - Psychiatric oriented to time, oriented to person, oriented to place, speech is normal, memory intact Assessment and Plan (1) Difficult intravenous access Status: Acute Code(s): Z78.9 - OTHER SPECIFIED HEALTH STATUS SNOMED Code(s): 365998640 (2) Port-A-Cath in place Status: Acute Code(s): Z95.828 - PRESENCE OF OTHER VASCULAR IMPLANTS AND GRAFTS SNOMED Code(s): 572719743 Plan: Patient is admitted for removal of current Port-A-Cath and replacement of the new Port-A-Cath via right internal jugular. We discussed with her the procedure and its risks. She appears to understand these things and wishes to proceed.
[~2019-07-21 09:23] MED LIST changes: +CLINDAMYCIN 900 MG in DEXTROSE 5% IN WATER 50 ML IVPB ONE; +DEXAMETHASONE SOD PHOSPHATE 10 MG/ML 1 ML VIAL IV ONE; +HYDROmorphone 0.5 MG/0.5 ML SYRINGE IVP PRN; -IOPAMIDOL-250 50ML BTL IV ONE; +LIDOCAINE 1% 20 ML VIAL (10MG/ML) FOR IV START INTRADERMA PRN; +MIDAZOLAM 2 MG/2 ML VIAL IV PRN; +ONDANSETRON 4 MG/2 ML VIAL IVP ONE; +SCOPOLAMINE 1.5MG/72HR PATCH TRANSDERM ONE; -SODIUM CHLORIDE 0.9% 250 ML IV ONE
[2019-07-21] MEDS: LACTATED RINGERS 1,000 ML IV SCH (10:20)
[2019-07-21 10:24] LABS: Glucose,Whole Blood 133 mg/dL (75-99)
[2019-07-21] MEDS ORDERED: PROPOFOL 10 MG/ML 20 ML VIAL IV ONE ×2 (11:09→16:04)
[2019-07-21] MEDS ORDERED: fentaNYL (PF) 50 MCG/ML 2 ML AMP ONE ×2 (11:09→16:04)
[2019-07-21] MEDS ORDERED: MIDAZOLAM 2 MG/2 ML VIAL ONE ×2 (11:09→16:04)
[2019-07-21] MEDS ORDERED: LIDOCAINE 1% INJ 10MG/ML (20 ML MDV) ONE ×2 (11:09→16:04)
[2019-07-21] MEDS ORDERED: KETAMINE 10 MG/ML 20 ML VIAL ONE (11:09)
[2019-07-21] MEDS ORDERED: HEPARIN SODIUM,PORCINE 100 UNIT/ML 5 ML VIAL IV ONE (11:38)
[2019-07-21] MEDS ORDERED: LIDOCAINE (PF) 10 MG/ML 2 ML VIAL SQ ONE (11:41)
--- NOTE | 2019-07-21 12:38 | P.PCN ---
Date of Procedure: 07/21/19 Preoperative Diagnosis: Malfunctioning Port-A-Cath inpatient requiring IV access Postoperative Diagnosis: Same Procedure(s) Performed: Removal of left-sided Port-A-Cath and insertion of Port-A-Cath via right internal jugular. Anesthesia: MAC Surgeon: Vincenzo Dalton Estimated Blood Loss (ml): 50 Pathology: none sent Condition: stable Disposition: PACU Indications for Procedure: The patient has a chronic iron deficiency anemia secondary to gastric bypass procedure. She requires frequent infusion therapies and is a very poor blood draw. She requires IV access. Operative Findings: There were no significant abnormalities. Description of Procedure: With the patient in supine position, under benefit of IV sedation, we prepped and draped in standard fashion. We anesthetized with 1% lidocaine. We exposed the Port-A-Cath on the left side of her chest and using a combination of sharp dissection and electrocautery were able to remove the reservoir and the catheter intact. We then anesthetized 1% lidocaine. Using ultrasound guidance we accessed the right internal jugular vein. A guidewire was placed through the needle and the needle was removed. We noted a rather high venous pressure but it was not pulsatile. We then anesthetized again with lidocaine and over the right parasternal border made a transverse incision. We made a pocket for the reservoir. We attached it to the catheter and using 3 separate silk stitches secured it to the pectoralis fascia. We then, using the tunneling apparatus, tunneled the catheter from the reservoir site to the jugular insertion puncture site in the neck. Using fluoroscopy we cut the catheter to length. A dilator and sheath were placed over the guidewire in standard Seldinger fashion. The guidewire and dilator removed and the catheter was placed through the sheath. The sheath was then removed. The catheter was seen to be in good position. There was good blood return. It was charged with a standard heparin solution. Hemostasis was excellent throughout. Our incisions were closed with Vicryl. Sterile dressings were applied. The patient tolerated the procedure well and was taken recovery area in stable condition.
[2019-07-21] MEDS ORDERED: HYDROcodone/APAP 7.5-325MG 1 EACH TAB PO ONE (13:08)
--- NOTE | 2019-07-21 13:29 | XR ---
EXAMINATION TYPE: XR chest 1V portable DATE OF EXAM: 07/21/2019 COMPARISON: Prior chest x-ray 06/17/2019 HISTORY: Status post Port-A-Cath placement TECHNIQUE: Single frontal view of the chest is obtained. FINDINGS: There is been interval removal of the left-sided port, interval placement of a right pecto ral port via the internal jugular approach. Patient is rotated. Distal tip of the catheter is superim posed over the mediastinum. There is no evident pneumothorax or pleural effusion. IMPRESSION: No pneumothorax status post port placement. Catheter tip may be over the superior vena c shaka, rotated exam
[2019-07-21] MEDS ORDERED: LACTATED RINGERS 1,000 ML IV ONE ×2 (14:24→16:11)
--- NOTE | 2019-07-21 14:29 | CT ---
EXAMINATION TYPE: CT chest wo con DATE OF EXAM: 07/21/2019 COMPARISON: Chest x-ray same date HISTORY: Port a cath placement CT DLP: 365.1 mGycm. Automated Exposure Control for Dose Reduction was Utilized. TECHNIQUE: CT scan of the thorax is performed without IV contrast. FINDINGS: The right sided Port-A-Cath over the pectoral region shows the catheter looped within the s ubcutaneous soft tissues and coursing across the sternocleidomastoid muscle into the superior mediast inum, distal tip is within the aorta. There is increased attenuation within the superior mediastinum, loss of definition of the vasculature due to local hemorrhage within the supraclavicular region and superior mediastinum extending to the level of the azygos vein confluence with the superior vena cava . There is some shift of the trachea towards the left midline. Lucencies present within the soft tiss ues compatible with postop state. Small section of tubular dense material within the innominate vein on the left likely represents incomplete catheter removal. LUNGS: The lungs are remarkable for some minimal dependent atelectatic changes greater in the right. There is no pleural effusion or pneumothorax seen. The tracheobronchial tree is patent. MEDIASTINUM: Lack of IV contrast is noted to limit evaluation. There are no definitive greater than 1 cm hilar or mediastinal lymph nodes. No cardiomegaly or pericardial effusion is seen. Other: Postop changes are noted to the stomach. Dependent hyperdensity within the gallbladder likely represent stones. Postop change noted to the bowel. IMPRESSION: Arterial puncture with patient's central catheter with local hemorrhage as described. Pos top changes. Residual foreign body within the left innominate vein. Case discussed with referring cli nician at time of interpretation.
--- NOTE | 2019-07-21 14:32 | P.PN ---
Progress Note - Text Progress Note Date: 07/21/19 On review of the postoperative films, I was concerned that the catheter may actually have been placed in the carotid artery. I discussed this with the patient. We performed a CAT scan, which verified the placement. I discussed the case with Dr. Shah. We discussed the options in detail including simple removal of the catheter with pressure versus expiration of the artery and placing a suture. Due to the positioning we feel that the safest option is exploration of the carotid with a suture control of the puncture site. I discussed this with the patient in detail. I discussed with her potential complications. I discussed the options for therapy. The patient appears to understand all of these things and agrees to proceed with exploration of the carotid with closure of the puncture site.
--- NOTE | 2019-07-21 15:37 | FL ---
Fluoroscopy HISTORY: Port-A-Cath placement 1.41 minutes fluoroscopy time supplied to the referring clinician. 1 intraoperative C-arm images doc ument the procedure. See dictated report from thoracic surgery.
[2019-07-21 15:54] LABS: Glucose,Whole Blood 192 mg/dL (75-99)
[2019-07-21] MEDS ORDERED: GLYCOPYRROLATE 0.2 MG/ML 2 ML VIAL ONE (16:04)
[2019-07-21] MEDS ORDERED: NEOSTIGMINE 1 MG/ML 10 ML VIAL ONE (16:04)
[2019-07-21] MEDS ORDERED: SUCCINYLCHOLINE CHLORIDE 100 MG/5 ML SYR IV ONE (16:04)
[2019-07-21] MEDS ORDERED: ROCURONIUM BROMIDE 10 MG/ML 10 ML VIAL IV ONE (16:04)
--- NOTE | 2019-07-21 16:18 | P.GSCN ---
History of Present Illness Consult date: 07/21/19 History of present illness: The patient is a 53-year-old female with a previous history of gastric bypass surgery and poor peripheral IV access. She frequently needs IV for multiple medical issues and iron deficiency anemia. She had a left sided Mediport for many years previously which was nonfunctioning. She was initially brought to the operating room for a right-sided Mediport placement. This was performed this morning, on postoperative x-ray imaging the placement was suspicious for malpositioning into the arterial system. A CT scan was performed and confirmed and intra-arterial catheter terminating in the aortic arch. At that point we have been called for assistance in appropriate placement. At the time of my evaluation, the patient is in the postprocedural area. She is awake and alert without any issues. She has minimal tenderness to her right n bernard. There is a small area of hematoma. She denies any chest pains, shortness of breath, nausea, vomiting Past Medical History Past Medical History: Diabetes Mellitus, Thyroid Disorder Additional Past Medical History / Comment(s): CHRONIC BACK PAIN. Fatigue. Treated for sepsis 6 weeks ago. Had UTI prior to that for 4-5 months. History of Any Multi-Drug Resistant Organisms: None Reported Past Surgical History: Bariatric Surgery Additional Past Surgical History / Comment(s): WEIGHT LOSS SURGERY- SLEEVE BYPASS. Tummy tuck, excess skin removed. Past Anesthesia/Blood Transfusion Reactions: No Reported Reaction Past Psychological History: No Psychological Hx Reported Smoking Status: Never smoker Past Alcohol Use History: None Reported Past Drug Use History: None Reported - Past Family History Mother Family Medical History: Cancer Additional Family Medical History / Comment(s): Breast cancer. Sister(s) Family Medical History: Cancer Additional Family Medical History / Comment(s): Breast cancer. Medications and Allergies Home Medications Medication Instructions Recorded Confirmed Type Calcium Carbonate [Calcium] 1,200 mg PO DAILY 06/17/19 07/20/19 History Ciprofloxacin HCl [Cipro] 250 mg PO Q12HR 06/17/19 07/20/19 History Ferrous Sulfate [Iron (65 MG 325 mg PO DAILY 06/17/19 07/20/19 History Elemental)] Multivitamins, Thera [Multivitamin 1 tab PO DAILY 06/17/19 07/20/19 History (formulary)] metFORMIN HCL 1,000 mg PO BID 06/17/19 07/20/19 History cefTRIAXone [Rocephin] 2,000 mg IVPB Q24HR #21 vial 06/19/19 07/20/19 Rx Cefuroxime Axetil [Ceftin] 500 mg PO BID #14 tab 06/22/19 07/20/19 Rx Levothyroxine Sodium [Synthroid] 50 mcg PO HS 07/20/19 07/20/19 History Allergies Allergy/AdvReac Type Severity Reaction Status Date / Time latex Allergy Anaphylaxis Verified 07/20/19 08:26 Penicillins Allergy Anaphylaxis Verified 07/20/19 08:26 Surgical - Exam Vital Signs Pulse Resp BP Pulse Ox 84 17 133/96 98 07/21/19 10:01 07/21/19 10:01 07/21/19 10:01 07/21/19 10:01 Patient resting comfortably in no acute distress right neck puncture site clean and dry chest clear heart regular abd soft non tender, non distended Results - Labs Abnormal Lab Results - Last 24 Hours (Table) 07/21/19 Range/Units 10:22 POC Glucose (mg/dL) 133 H (75-99) mg/dL Assessment and Plan Assessment: Malpositioned chest wall mediport, intraarterial poor peripheral access need for multiple infusions Plan for OR this afternoon for removal and replacement.
[2019-07-21 16:59] LABS: Basophils % (A) 1 %; Eosinophils # (A) 0.1 k/uL (0-0.7); Eosinophils % (A) 1 %; HCT 35.7 % (34.0-46.0); HGB 11.5 gm/dL (11.4-16.0); Lymphocytes % (A) 14 %; MCH 31.9 pg (25.0-35.0); MCHC 32.3 g/dL (31.0-37.0); MCV 98.7 fL (80.0-100.0); Mean Platelet Volume 7.3; Monocytes # (A) 0.2 k/uL (0-1.0); Monocytes % (A) 3 %; Neutrophils # (A) 5.9 k/uL (1.3-7.7); Neutrophils % (A) 81 %; Platelet Count 228 k/uL (150-450); RBC 3.62 m/uL (3.80-5.40); RDW 14.6 % (11.5-15.5); WBC 7.3 k/uL (3.8-10.6)
[2019-07-21] MEDS ORDERED: SODIUM CHLORIDE 0.9% 1,000 ML IV ONE (17:07)
[2019-07-21] MEDS ORDERED: HEPARIN SODIUM (1,000 UNIT/ML) 2,000 UNIT in SODIUM CHLORIDE 0.9% 1,000 ML IRRIGATION ONE (17:08)
[2019-07-21 18:48] LABS: Glucose,Whole Blood 167 mg/dL (75-99)
[2019-07-21] MEDS ORDERED: HYDROcodone/APAP 5-325MG 1 EACH TAB PO PRN (19:00)
--- NOTE | 2019-07-21 19:01 | XR ---
EXAMINATION: XR chest 1V DATE AND TIME: 07/21/2019 6:53 PM CLINICAL INDICATION: PHH; Post line placement TECHNIQUE: Portable AP COMPARISON: 07/21/2019 FINDINGS: Right IJ Port-A-Cath tip superimposed over the distal SVC. The lungs are clear. The pleural spaces are negative. The cardiac silhouette is not enlarged. The remainder of the mediastinal silhouette is unremarkable. The skeletal structures and soft tissues are negative for acute findings. IMPRESSION: No acute process post line placement.
--- NOTE | 2019-07-21 19:04 | P.OP ---
Date of Procedure: 07/21/19 Description of Procedure: Preoperative diagnosis: Malpositioned tunneled catheter into the carotid artery Postoperative diagnosis: Malpositioned tunneled catheter into the subclavian artery Procedure: Right neck exploration with right subclavian artery repair, internal jugular vein repair and repositioning of the tunneled catheter under fluoroscopic guidance Surgeon: Amilcar Shah DO Clinical Trial Head: Onesimo Dalton DO Estimated blood loss: 10cc Complications: None Condition: Stable Indications: 53 year old female who presented originally for a tunneled port by Dr. Dalton which after the procedure upon Xray showed concern for malpositioning which CAT scan verified catheter in the arterial system. Patient was then taken to the operating room for exploration and repair of the artery. Operative narrative: After written informed consent was obtained from the patient and all risks, benefits, and complications were described the patient was brought to the operative suite and laid in a supine position. The area of the right chest and neck was prepped and draped in usual sterile fashion after appropriate anesthetic was performed per the anesthesiologist. A timeout was performed in normal fashion. A vertical incision with a 15 blade scalpel was then created just anterior to the sternocleidomastoid musculature on the right neck. Dissection was carried down through the platysma with electrocautery towards the carotid artery. The carotid artery was dissected free and followed towards the chest. Upon dissection there was no evidence of injury to the carotid and dissection was carried down all the way to the innominate artery and takeoff of the subclavian artery. There was hematoma noted at the subclavian artery and therefore continued dissection towards the subclavian was performed. At this time it was determined to locate the catheter and dissection was carried around the catheter towards the internal jugular vein and subclavian artery. The catheter traversed through the internal jugular vein and on the posterior aspect of the internal jugular vein and the catheter entered the subclavian artery just distal to the takeoff. A 6-0 pursestring suture was then placed around the catheter at the level of the entrance to the subclavian artery and the catheter was removed and the suture was secured. Hemostasis was assured. There was no active bleeding from the subclavian artery. Subclavian artery was then assessed and shown to have a palpable pulse. Attention was then placed to the internal jugular vein this was dissected free in a circumferential manner both proximally and distally and controlled with vessel loops. The catheter was then removed from the posterior aspect of the internal jugular vein and guided into the jugular vein towards the heart. The posterior hole in the vein was then sutured closed with 6-0 Prolene suture. A 6-0 pursestring suture was once again placed around the catheter and the internal jugular vein to prevent any bleeding. At this time fluoroscopy was utilized and the catheter was shown to be in place at the suprapubic vena cava and atrial junction. The port was then assessed for patency injured flushed easily and then was hep-locked. Attention was then placed back to the incision which was copiously irrigated and then clos ed in a multilayer fashion. The patient tied procedure well and was sent to PACU for recovery.
[2019-07-21] MEDS: hydrALAZINE HCL 20 MG/ML 1 ML VIAL IVP ONE ×2 (19:42→19:57)
[2019-07-21] MEDS ORDERED: ONDANSETRON 4 MG/2 ML VIAL IVP PRN (20:47)
[2019-07-21 20:50] LABS: Glucose,Whole Blood 192 mg/dL (75-99)
[2019-07-21] MEDS: HYDROcodone/APAP 5-325MG 1 EACH TAB PO PRN (20:59)
[2019-07-21] MEDS: CIPROFLOXACIN HCL 250 MG TAB PO SCH (21:00)
[2019-07-21] MEDS ORDERED: LEVOTHYROXINE 50 MCG TAB PO SCH (21:00)
[2019-07-21] MEDS: CEFDINIR 300 MG CAP PO SCH (21:00)
[2019-07-21] MEDS: metFORMIN 500 MG TAB PO SCH (21:54)
[2019-07-21] MEDS: DEXTROSE 5%-0.45% NACL 1,000 ML IV SCH (23:59)
[2019-07-22] MEDS: HYDROcodone/APAP 5-325MG 1 EACH TAB PO PRN ×2 (01:36→06:37)
[2019-07-22 05:06] VITALS: TEMP 98
[2019-07-22 06:20] LABS: Glucose,Whole Blood 121 mg/dL (75-99)
[2019-07-22 06:55] VITALS: RESP 18
[2019-07-22] MEDS: DEXTROSE 5%-0.45% NACL 1,000 ML IV SCH (07:38)
[2019-07-22] MEDS: LACTATED RINGERS 1,000 ML IV SCH (07:53)
[2019-07-22 07:56] VITALS: BP 118/82; PULSE 81
[2019-07-22] MEDS: metFORMIN 500 MG TAB PO SCH (07:56)
[2019-07-22] MEDS: CEFDINIR 300 MG CAP PO SCH (07:57)
[2019-07-22] MEDS: CIPROFLOXACIN HCL 250 MG TAB PO SCH (07:57)
[2019-07-22] MEDS ORDERED: CYCLOBENZAPRINE 10 MG TAB PO PRN (08:29)
--- NOTE | 2019-07-22 08:29 | P.CONS ---
History of Present Illness - Chief Complaint Mediport placement. - History of Present Illness This is a consultation on a 53-year-old diabetic white female who recently was hospitalized for pyelonephritis. The patient is now seen for Mediport placement. Blood sugar has been stable. She is requesting cyclobenzaprine. No significant fever or chills. No nausea, vomiting or diarrhea is stated. She does complain of arthralgia today. We have been consulted for medical management of diabetes Review of Systems Constitutional: Denies chills, Denies fever Eyes: denies blurred vision, denies pain Ears, nose, mouth and throat: Denies headache, Denies sore throat Cardiovascular: Denies lightheadedness Respiratory: Denies cough Genitourinary: Denies dysuria, Denies hematuria Musculoskeletal: Reports low back pain Past Medical History Past Medical History: Diabetes Mellitus, Thyroid Disorder Additional Past Medical History / Comment(s): CHRONIC BACK PAIN. Fatigue. Treated for sepsis 6 weeks ago. Had UTI prior to that for 4-5 months. History of Any Multi-Drug Resistant Organisms: None Reported Past Surgical History: Bariatric Surgery Additional Past Surgical History / Comment(s): WEIGHT LOSS SURGERY- SLEEVE BYPASS. Tummy tuck, excess skin removed. Past Anesthesia/Blood Transfusion Reactions: No Reported Reaction Past Psychological History: No Psychological Hx Reported Smoking Status: Never smoker Past Alcohol Use History: None Reported Past Drug Use History: None Reported - Past Family History Mother Family Medical History: No Reported History Additional Family Medical History / Comment(s): from ruptured aneurysm. Sister(s) Family Medical History: Cancer Additional Family Medical History / Comment(s): Breast cancer. Father Additional Family Medical History / Comment(s): at age 39 ETOH abuse. Medications and Allergies Home Medications Medication Instructions Recorded Confirmed Type Calcium Carbonate [Calcium] 1,200 mg PO DAILY 06/17/19 07/20/19 History Ciprofloxacin HCl [Cipro] 250 mg PO Q12HR 06/17/19 07/20/19 History Ferrous Sulfate [Iron (65 MG 325 mg PO DAILY 06/17/19 07/20/19 History Elemental)] Multivitamins, Thera [Multivitamin 1 tab PO DAILY 06/17/19 07/20/19 History (formulary)] metFORMIN HCL 1,000 mg PO BID 06/17/19 07/20/19 History cefTRIAXone [Rocephin] 2,000 mg IVPB Q24HR #21 vial 06/19/19 07/20/19 Rx Cefuroxime Axetil [Ceftin] 500 mg PO BID #14 tab 06/22/19 07/20/19 Rx Levothyroxine Sodium [Synthroid] 50 mcg PO HS 07/20/19 07/20/19 History Allergies Allergy/AdvReac Type Severity Reaction Status Date / Time latex Allergy Anaphylaxis Verified 07/20/19 08:26 Penicillins Allergy Anaphylaxis Verified 07/20/19 08:26 Physical Exam Vitals: Vital Signs Temp Pulse Pulse Resp BP BP Pulse Ox 07/22/19 07:54 81 18 118/82 96 07/22/19 06:09 98.0 F 82 18 166/78 96 07/22/19 04:00 98.0 F 74 16 173/88 97 07/22/19 00:00 98.1 F 84 18 182/80 94 L 07/21/19 22:09 98.0 F 88 18 180/86 95 07/21/19 21:09 98.1 F 87 18 180/93 95 07/21/19 20:09 98.0 F 104 H 21 172/99 94 L 07/21/19 20:00 95 104 H 21 156/86 95 07/21/19 19:45 90 18 209/105 98 07/21/19 19:30 57 L 16 222/111 96 07/21/19 19:15 61 16 211/99 97 07/21/19 19:00 62 16 179/92 94 L 07/21/19 18:45 71 16 179/95 98 07/21/19 18:44 98.0 F 104 H 21 172/99 07/21/19 18:32 97.7 F 64 16 195/91 98 07/21/19 15:54 73 18 124/87 99 07/21/19 14:44 69 18 139/89 93 L 07/21/19 13:36 74 18 134/92 94 L 07/21/19 12:37 88 17 169/92 92 L 07/21/19 10:01 84 17 133/96 98 Intake and Output 07/21/19 07/22/19 07/22/19 22:59 06:59 14:59 Intake Total 1651.5 Output Total 110 1375 900 Balance 1541.5 -1375 -900 Intake: IV 1651.5 Output: Urine 100 1375 900 Uretheral ([place]) 900 Estimated Blood Loss 10 Other: Voiding Method Indwelling Catheter Indwelling Catheter Weight 102 kg - Constitutional General appearance: no acute distress - EENT Eyes: EOMI - Neck Neck: no lymphadenopathy - Respiratory Respiratory: bilateral: CTA - Cardiovascular Rhythm: regular Heart sounds: normal: S1, S2 Abnormal Heart Sounds: no S3 Gallop - Gastrointestinal General gastrointestinal: soft, no tenderness - Psychiatric Psychiatric: A&O x's 3 Results CBC & Chem 7: 07/21/19 16:50 Labs: Abnormal Lab Results - Last 24 Hours (Table) 07/21/19 07/21/19 07/21/19 Range/Units 10:22 15:50 16:50 RBC 3.62 L (3.80-5.40) m/uL POC Glucose (mg/dL) 133 H 192 H (75-99) mg/dL 07/21/19 07/21/19 07/22/19 Range/Units 18:45 20:47 06:18 RBC (3.80-5.40) m/uL POC Glucose (mg/dL) 167 H 192 H 121 H (75-99) mg/dL Assessment and Plan (1) Diabetes Current Visit: Yes Status: Acute Code(s): E11.9 - TYPE 2 DIABETES MELLITUS WITHOUT COMPLICATIONS SNOMED Code(s): 22779761 (2) Low back pain Current Visit: Yes Status: Acute Code(s): M54.5 - LOW BACK PAIN SNOMED Code(s): 066130991 (3) Difficult intravenous access Current Visit: No Status: Acute Code(s): Z78.9 - OTHER SPECIFIED HEALTH STATUS SNOMED Code(s): 908268735 (4) Port-A-Cath in place Current Visit: No Status: Acute Code(s): Z95.828 - PRESENCE OF OTHER VASCULAR IMPLANTS AND GRAFTS SNOMED Code(s): 131883237 Plan: Reconcile home medications. Restart Flexeril Sliding scale while she is here. Otherwise, anticipate discharge in next 24 hours. Flexeril has been represcribed at Hospital pharmacy today. We'll continue to follow. Appreciate consultation request. Time with Patient: Greater than 30
--- NOTE | 2019-07-22 08:38 | FL ---
Fluoroscopy HISTORY: Port-A-Cath placement 1 seconds fluoroscopy time supplied to the referring clinician. 1 intraoperative C-arm images docume nt the procedure. See dictated report from thoracic surgery.
--- NOTE | 2019-07-22 08:55 | P.WNDSOAP ---
Subjective Progress Note Date: 07/22/19 Principal diagnosis: Requiring IV access Patient was admitted for observation following an insertion of Port-A-Cath. It was malpositioned, entering the right subclavian artery. It was repositioned and the puncture of the subclavian artery was repaired directly by Dr. Shah. Today the patient says she feels much better than last evening. She does ache all over. Objective - Vital Signs Vital signs: Vital Signs Temp 98.0 F 07/22/19 06:09 Pulse 81 07/22/19 07:54 Resp 18 07/22/19 07:54 BP 118/82 07/22/19 07:54 Pulse Ox 96 07/22/19 07:54 Intake & Output 07/21/19 07/22/19 07/22/19 18:59 06:59 18:59 Intake Total 2332.5 450 Output Total 130 1375 900 Balance 2202.5 -925 -900 Weight 102 kg Intake: IV 2332.5 450 Output: Urine 100 1375 900 Uretheral ([place]) 900 Estimated Blood Loss 30 Other: Voiding Method Indwelling Catheter - Exam She has a good radial pulse. There is minimal swelling on the right neck. Dressings are clean and dry - Labs CBC & Chem 7: 07/21/19 16:50 Labs: Abnormal Lab Results - Last 24 Hours (Table) 07/21/19 07/21/19 07/21/19 Range/Units 10:22 15:50 16:50 RBC 3.62 L (3.80-5.40) m/uL POC Glucose (mg/dL) 133 H 192 H (75-99) mg/dL 07/21/19 07/21/19 07/22/19 Range/Units 18:45 20:47 06:18 RBC (3.80-5.40) m/uL POC Glucose (mg/dL) 167 H 192 H 121 H (75-99) mg/dL Assessment and Plan (1) Difficult intravenous access Current Visit: No Status: Acute Code(s): Z78.9 - OTHER SPECIFIED HEALTH STATUS SNOMED Code(s): 453101048 (2) Port-A-Cath in place Current Visit: No Status: Acute Code(s): Z95.828 - PRESENCE OF OTHER VASCULAR IMPLANTS AND GRAFTS SNOMED Code(s): 667483327 Plan: The patient is doing well post-repositioning of the Port-A-Cath and repair of buckley bclavian artery puncture. We've given her instructions to avoid vigorous activity or lifting for at least 2 weeks. We will follow her in the office in 1-2 weeks. She will call if she has any difficulties in the meantime.
[2019-07-22] MEDS ORDERED: NON FORMULARY DRUG (Ceftriaxone 2,000 MG) IVPB SCH (09:00)
[2019-07-22] MEDS ORDERED: FERROUS SULFATE 325 MG TAB PO SCH (09:00)
[2019-07-22] MEDS ORDERED: CALCIUM CARBONATE 500 MG CHEWABLE PO SCH (09:00)
[2019-07-22 11:35] LABS: Glucose,Whole Blood 143 mg/dL (75-99)
== END 2019-07-22 12:04 | disposition home or self-care (01) ==
LOC: OR 09:23 → 3SCARD 18:11 → OR 07-22 12:04
PROVIDERS: ATTEND Thoracic Surgery (Cardiothoracic Vascular Surgery)
DX: T82.518A Breakdown (mechanical) of other cardiac and vascular devices and implants, initial encounter (principal); T82.528A Displacement of other cardiac and vascular devices and implants, initial encounter; D50.9 Iron deficiency anemia, unspecified; Z98.84 Bariatric surgery status; E11.9 Type 2 diabetes mellitus without complications; E07.9 Disorder of thyroid, unspecified; G89.29 Other chronic pain; M54.9 Dorsalgia, unspecified; Z79.2 Long term (current) use of antibiotics; Z79.890 Hormone replacement therapy; Z79.84 Long term (current) use of oral hypoglycemic drugs; Z79.899 Other long term (current) drug therapy; Z88.0 Allergy status to penicillin; Z91.040 Latex allergy status; Z87.440 Personal history of urinary (tract) infections; Z97.2 Presence of dental prosthetic device (complete) (partial); Z80.3 Family history of malignant neoplasm of breast; T82.898A Other specified complication of vascular prosthetic devices, implants and grafts, initial encounter
CPT/HCPCS: 36590; 36561; 77001; 36597; 86900; 86901; 85025; 86850; 71045; 71250; C1788; J2250; J0360; J2001 ×2; J1642 ×2; J1100; J2710; J2405; J3010; J1644; J0330; J2704; J1170

== ENCOUNTER 2022-05-15 22:03 | Observation (INO) | payer BC, OTHER ==
[2022-05-15] MEDS ORDERED: SODIUM CHLORIDE 0.9% 1,000 ML IV STA (22:08)
--- NOTE | 2022-05-15 22:09 | ED ---
Altered Mental Status HPI - General Stated Complaint: Altered Mental Status Time Seen by Provider: 05/15/22 22:06 - Related Data Home Medications Medication Instructions Recorded Confirmed Ferrous Sulfate [Iron (65 MG 325 mg PO Q48H 06/17/19 05/15/22 Elemental)] Multivitamins, Thera [Multivitamin 1 tab PO DAILY 06/17/19 05/15/22 (formulary)] metFORMIN HCL [Glucophage] 1,000 mg PO BID 06/17/19 05/15/22 Cyclobenzaprine [Flexeril] 10 mg PO DAILY 05/15/22 05/15/22 Levothyroxine Sodium [Synthroid] 112 mcg PO DAILY 05/15/22 05/15/22 Pravastatin Sodium [Pravachol] 40 mg PO HS 05/15/22 05/15/22 Zolpidem Tartrate [Ambien Cr] 12.5 mg PO HS PRN 05/15/22 05/15/22 Allergies Allergy/AdvReac Type Severity Reaction Status Date / Time latex Allergy Anaphylaxis Verified 05/15/22 23:11 Penicillins Allergy Anaphylaxis, Verified 05/15/22 23:11 throat swelling, rash all over body Review of Systems ROS Statement: Those systems with pertinent positive or pertinent negative responses have been documented in the HPI. ROS Other: All systems not noted in ROS Statement are negative. Past Medical History Past Medical History: Diabetes Mellitus, Thyroid Disorder Additional Past Medical History / Comment(s): CHRONIC BACK PAIN. Fatigue. Treated for sepsis 6 weeks ago. Had UTI prior to that for 4-5 months. History of Any Multi-Drug Resistant Organisms: None Reported Past Surgical History: Bariatric Surgery Additional Past Surgical History / Comment(s): WEIGHT LOSS SURGERY- SLEEVE BYPASS. Tummy tuck, excess skin removed. Past Anesthesia/Blood Transfusion Reactions: No Reported Reaction Past Psychological History: No Psychological Hx Reported Past Alcohol Use History: None Reported Past Drug Use History: None Reported - Past Family History Mother Family Medical History: No Reported History Additional Family Medical History / Comment(s): from ruptured aneurysm. Sister(s) Family Medical History: Cancer Additional Family Medical History / Comment(s): Breast cancer. Father Additional Family Medical History / Comment(s): at age 39 ETOH abuse. Course Vital Signs 05/15/22 05/15/22 22:13 22:55 Temperature 98.5 F Pulse Rate 67 91 Respiratory 18 18 Rate Blood Pressure 124/80 130/82 O2 Sat by Pulse 96 98 Oximetry Medical Decision Making - Lab Data Result diagrams: 05/15/22 22:38 05/15/22 22:38 Lab Results 05/15/22 05/15/22 05/15/22 Range/Units 22:34 22:38 22:38 WBC 4.5 (3.8-10.6) k/uL RBC 4.39 (3.80-5.40) m/uL Hgb 13.6 (11.4-16.0) gm/dL Hct 43.6 (34.0-46.0) % MCV 99.2 (80.0-100.0) fL MCH 30.9 (25.0-35.0) pg MCHC 31.2 (31.0-37.0) g/dL RDW 13.4 (11.5-15.5) % Plt Count 214 (150-450) k/uL MPV 7.7 Neutrophils % 43 % Lymphocytes % 44 % Monocytes % 7 % Eosinophils % 3 % Basophils % 2 % Neutrophils # 1.9 (1.3-7.7) k/uL Lymphocytes # 1.9 (1.0-4.8) k/uL Monocytes # 0.3 (0-1.0) k/uL Eosinophils # 0.2 (0-0.7) k/uL Basophils # 0.1 (0-0.2) k/uL PT 11.0 (9.0-12.0) sec INR 1.0 (<1.2) APTT 21.8 L (22.0-30.0) sec Sodium (137-145) mmol/L Potassium (3.5-5.1) mmol/L Chloride (98-107) mmol/L Carbon Dioxide (22-30) mmol/L Anion Gap mmol/L BUN (7-17) mg/dL Creatinine (0.52-1.04) mg/dL Est GFR (CKD-EPI)AfAm (>60 ml/min/1.73 sqM) Est GFR (CKD-EPI)NonAf (>60 ml/min/1.73 sqM) Glucose (74-99) mg/dL POC Glucose (mg/dL) 130 H (75-99) mg/dL POC Glu Change Booth Attendant [place] Jordan Philip Calcium (8.4-10.2) mg/dL Magnesium (1.6-2.3) mg/dL Total Bilirubin (0.2-1.3) mg/dL AST (14-36) U/L ALT (4-34) U/L Alkaline Phosphatase (38-126) U/L Ammonia (<30) umol/L Troponin I (0.000-0.034) ng/mL Total Protein (6.3-8.2) g/dL Albumin (3.5-5.0) g/dL Urine Color Urine Appearance (Clear) Urine pH (5.0-8.0) Ur Specific [place] (1.001-1.035) Urine Protein (Negative) Urine Glucose (UA) (Negative) Urine Ketones (Negative) Urine Blood (Negative) Urine Nitrite (Negative) Urine Bilirubin (Negative) Urine Urobilinogen (<2.0) mg/dL Ur Leukocyte Esterase (Negative) Urine RBC (0-5) /hpf Urine WBC (0-5) /hpf Ur Squamous Epith Cells (0-4) /hpf Urine Bacteria (None) /hpf Hyaline Casts (0-2) /lpf Urine Mucus (None) /hpf Urine Opiates Screen (NotDetected) Ur Oxycodone Screen (NotDetected) Urine Methadone Screen (NotDetected) Ur Propoxyphene Screen (NotDetected) Ur Barbiturates Screen (NotDetected) U Tricyclic Antidepress (NotDetected) Ur Phencyclidine Scrn (NotDetected) Ur Amphetamines Screen (NotDetected) U Methamphetamines Scrn (NotDetected) U Benzodiazepines Scrn (NotDetected) Urine Cocaine Screen (NotDetected) U Marijuana (THC) Screen (NotDetected) Serum Alcohol mg/dL 05/15/22 05/15/22 05/15/22 Range/Units 22:38 22:38 22:38 WBC (3.8-10.6) k/uL RBC (3.80-5.40) m/uL Hgb (11.4-16.0) gm/dL Hct (34.0-46.0) % MCV (80.0-100.0) fL MCH (25.0-35.0) pg MCHC (31.0-37.0) g/dL RDW (11.5-15.5) % Plt Count (150-450) k/uL MPV Neutrophils % % Lymphocytes % % Monocytes % % Eosinophils % % Basophils % % Neutrophils # (1.3-7.7) k/uL Lymphocytes # (1.0-4.8) k/uL Monocytes # (0-1.0) k/uL Eosinophils # (0-0.7) k/uL Basophils # (0-0.2) k/uL PT (9.0-12.0) sec INR (<1.2) APTT (22.0-30.0) sec Sodium 137 (137-145) mmol/L Potassium 4.2 (3.5-5.1) mmol/L Chloride 110 H (98-107) mmol/L Carbon Dioxide 22 (22-30) mmol/L Anion Gap 5 mmol/L BUN 20 H (7-17) mg/dL Creatinine 1.03 (0.52-1.04) mg/dL Est GFR (CKD-EPI)AfAm 70 (>60 ml/min/1.73 sqM) Est GFR (CKD-EPI)NonAf 61 (>60 ml/min/1.73 sqM) Glucose 145 H (74-99) mg/dL POC Glucose (mg/dL) (75-99) mg/dL POC Glu Change Booth Attendant ID Calcium 8.8 (8.4-10.2) mg/dL Magnesium 1.6 (1.6-2.3) mg/dL Total Bilirubin 0.6 (0.2-1.3) mg/dL AST 113 H (14-36) U/L ALT 88 H (4-34) U/L Alkaline Phosphatase 105 (38-126) U/L Ammonia <9 (<30) umol/L Troponin I <0.012 (0.000-0.034) ng/mL Total Protein 6.7 (6.3-8.2) g/dL Albumin 4.1 (3.5-5.0) g/dL Urine Color Urine Appearance (Clear) Urine pH (5.0-8.0) Ur Specific [place] (1.001-1.035) Urine Protein (Negative) Urine Glucose (UA) (Negative) Urine Ketones (Negative) Urine Blood (Negative) Urine Nitrite (Negative) Urine Bilirubin (Negative) Urine Urobilinogen (<2.0) mg/dL Ur Leukocyte Esterase (Negative) Urine RBC (0-5) /hpf Urine WBC (0-5) /hpf Ur Squamous Epith Cells (0-4) /hpf Urine Bacteria (None) /hpf Hyaline Casts (0-2) /lpf Urine Mucus (None) /hpf Urine Opiates Screen (NotDetected) Ur Oxycodone Screen (NotDetected) Urine Methadone Screen (NotDetected) Ur Propoxyphene Screen (NotDetected) Ur Barbiturates Screen (NotDetected) U Tricyclic Antidepress (NotDetected) Ur Phencyclidine Scrn (NotDetected) Ur Amphetamines Screen (NotDetected) U Methamphetamines Scrn (NotDetected) U Benzodiazepines Scrn (NotDetected) Urine Cocaine Screen (NotDetected) U Marijuana (THC) Screen (NotDetected) Serum Alcohol <10 mg/dL 05/15/22 Range/Units 23:50 WBC (3.8-10.6) k/uL RBC (3.80-5.40) m/uL Hgb (11.4-16.0) gm/dL Hct (34.0-46.0) % MCV (80.0-100.0) fL MCH (25.0-35.0) pg MCHC (31.0-37.0) g/dL RDW (11.5-15.5) % Plt Count (150-450) k/uL MPV Neutrophils % % Lymphocytes % % Monocytes % % Eosinophils % % Basophils % % Neutrophils # (1.3-7.7) k/uL Lymphocytes # (1.0-4.8) k/uL Monocytes # (0-1.0) k/uL Eosinophils # (0-0.7) k/uL Basophils # (0-0.2) k/uL PT (9.0-12.0) sec INR (<1.2) APTT (22.0-30.0) sec Sodium (137-145) mmol/L Potassium (3.5-5.1) mmol/L Chloride (98-107) mmol/L Carbon Dioxide (22-30) mmol/L Anion Gap mmol/L BUN (7-17) mg/dL Creatinine (0.52-1.04) mg/dL Est GFR (CKD-EPI)AfAm (>60 ml/min/1.73 sqM) Est GFR (CKD-EPI)NonAf (>60 ml/min/1.73 sqM) Glucose (74-99) mg/dL POC Glucose (mg/dL) (75-99) mg/dL POC Glu Change Booth Attendant ID Calcium (8.4-10.2) mg/dL Magnesium (1.6-2.3) mg/dL Total Bilirubin (0.2-1.3) mg/dL AST (14-36) U/L ALT (4-34) U/L Alkaline Phosphatase (38-126) U/L Ammonia (<30) umol/L Troponin I (0.000-0.034) ng/mL Total Protein (6.3-8.2) g/dL Albumin (3.5-5.0) g/dL Urine Color Yellow Urine Appearance Cloudy H (Clear) Urine pH 6.0 (5.0-8.0) Ur Specific [place] 1.034 (1.001-1.035) Urine Protein 1+ H (Negative) Urine Glucose (UA) Negative (Negative) Urine Ketones Negative (Negative) Urine Blood Negative (Negative) Urine Nitrite Positive H (Negative) Urine Bilirubin Negative (Negative) Urine Urobilinogen 2.0 (<2.0) mg/dL Ur Leukocyte Esterase Moderate H (Negative) Urine RBC 2 (0-5) /hpf Urine WBC 76 H (0-5) /hpf Ur Squamous Epith Cells 4 (0-4) /hpf Urine Bacteria Many H (None) /hpf Hyaline Casts 9 H (0-2) /lpf Urine Mucus Many H (None) /hpf Urine Opiates Screen Not Detected (NotDetected) Ur Oxycodone Screen Not Detected (NotDetected) Urine Methadone Screen Not Detected (NotDetected) Ur Propoxyphene Screen Not Detected (NotDetected) Ur Barbiturates Screen Not Detected (NotDetected) U Tricyclic Antidepress Detected H (NotDetected) Ur Phencyclidine Scrn Not Detected (NotDetected) Ur Amphetamines Screen Not Detected (NotDetected) U Methamphetamines Scrn Not Detected (NotDetected) U Benzodiazepines Scrn Not Detected (NotDetected) Urine Cocaine Screen Not Detected (NotDetected) U Marijuana (THC) Screen Detected H (NotDetected) Serum Alcohol mg/dL - EKG Data -: EKG Interpreted by Me (EKG shows sinus rhythm rate 90 [place] 153 QRS 94 QTC 418) Disposition Clinical Impression: Altered mental status, UTI (urinary tract infection), Dehydration Disposition: ADMITTED IP TO THIS HOSP Condition: Fair Is patient prescribed a controlled substance at d/c from ED?: No Referrals: None,Stated [Primary Care Provider] - 1-2 days
[2022-05-15 22:37] LABS: Glucose,Whole Blood 130 mg/dL (75-99)
[2022-05-15 22:49] LABS: Basophils # (A) 0.1 k/uL (0-0.2); Basophils % (A) 2 %; Eosinophils # (A) 0.2 k/uL (0-0.7); Eosinophils % (A) 3 %; HCT 43.6 % (34.0-46.0); HGB 13.6 gm/dL (11.4-16.0); Lymphocytes # (A) 1.9 k/uL (1.0-4.8); Lymphocytes % (A) 44 %; MCH 30.9 pg (25.0-35.0); MCHC 31.2 g/dL (31.0-37.0); MCV 99.2 fL (80.0-100.0); Mean Platelet Volume 7.7; Monocytes # (A) 0.3 k/uL (0-1.0); Monocytes % (A) 7 %; Neutrophils # (A) 1.9 k/uL (1.3-7.7); Neutrophils % (A) 43 %; Platelet Count 214 k/uL (150-450); RBC 4.39 m/uL (3.80-5.40); RDW 13.4 % (11.5-15.5); WBC 4.5 k/uL (3.8-10.6)
[2022-05-15 23:04] LABS: Partial Thromboplastin Time 21.8 sec (22.0-30.0)
[2022-05-15 23:08] LABS: ALT 88 U/L (4-34); AST 113 U/L (14-36); African American GFR (CKD) 70 (>60 ml/min/1.73 sqM); Albumin 4.1 g/dL (3.5-5.0); Alcohol <10 mg/dL; Alkaline Phosphatase 105 U/L (38-126); Blood Urea Nitrogen 20 mg/dL (7-17); Calcium 8.8 mg/dL (8.4-10.2); Carbon Dioxide 22 mmol/L (22-30); Chloride 110 mmol/L (98-107); Glucose 145 mg/dL (74-99); Magnesium 1.6 mg/dL (1.6-2.3); Non-African American GFR(CKD) 61 (>60 ml/min/1.73 sqM); Total Bilirubin 0.6 mg/dL (0.2-1.3); Total Protein 6.7 g/dL (6.3-8.2)
[2022-05-15 23:09] LABS: Anion Gap 5 mmol/L; Potassium 4.2 mmol/L (3.5-5.1); Sodium 137 mmol/L (137-145)
--- NOTE | 2022-05-15 23:32 | XR ---
EXAMINATION TYPE: XR chest 1V portable DATE OF EXAM: 05/15/2022 COMPARISON: 07/21/2019 HISTORY: Altered mental status TECHNIQUE: FINDINGS: Heart is normal. Lungs are clear of infiltrate. There is right-sided central venous cathete r with tip in the superior vena cava. No pneumothorax. Trachea is midline. There is no sign of pleura l effusion. IMPRESSION: No active cardiopulmonary disease. No change.
--- NOTE | 2022-05-16 00:02 | CT ---
EXAMINATION TYPE: CT brain wo con DATE OF EXAM: 05/15/2022 COMPARISON: None HISTORY: ams CT DLP: 1095.7 mGycm Automated exposure control for dose reduction was used. Ventricles of normal size. There is no mass effect or midline shift. No sign of intracranial hemorrha ge. Calvarium is intact. There is normal aeration of the mastoid sinuses. Skull base is intact. IMPRESSION: Negative unenhanced head CT scan
[2022-05-16 00:09] LABS: Appearance,Urine Cloudy (Clear); Bacteria,Urine Many /hpf; Bilirubin,Urine Negative (Negative); Blood,Urine Negative (Negative); Color,Urine Yellow; Glucose,Urine (UA) Negative (Negative); Hyaline Casts,Urine 9 /lpf (0-2); Ketones,Urine Negative (Negative); Leukocyte Esterase,Urine Moderate (Negative); Mucus,Urine Many /hpf; Nitrite,Urine Positive (Negative); Protein,Urine 1+ (Negative); RBC,Urine 2 /hpf (0-5); Specific Gravity,Urine 1.034 (1.001-1.035); Squamous Epithelial Cell,Urine 4 /hpf (0-4); WBC,Urine 76 /hpf (0-5)
[2022-05-16 00:14] LABS: Amphetamine Screen,Urine Not Detected (NotDetected); Barbiturate Screen,Urine Not Detected (NotDetected); Benzodiazepines Screen,Urine Not Detected (NotDetected); Cocaine Screen,Urine Not Detected (NotDetected); Methadone Screen, Urine Not Detected (NotDetected); Opiate Screen,Urine Not Detected (NotDetected); Oxycodone Screen, Urine Not Detected (NotDetected); Phencyclidine Screen,Urine Not Detected (NotDetected); Tricyclic Antidepressant,Urine Detected (NotDetected); Urn Cannabinoid Scrn Detected (NotDetected)
[2022-05-16] MEDS ORDERED: LORazepam 2 MG/ML INJ IV PRN (00:26)
[2022-05-16] MEDS ORDERED: ONDANSETRON 4 MG/2 ML VIAL IVP PRN (00:26)
[2022-05-16] MEDS ORDERED: NALOXONE 0.4 MG/ML 1 ML VIAL IV PRN (00:26)
[2022-05-16] MEDS: SODIUM CHLORIDE 0.9% 1,000 ML IV SCH ×2 (02:33→10:00)
[2022-05-16 07:36] VITALS: BP 133/76; PULSE 78; RESP 18; TEMP 97.5
[2022-05-16] MEDS ORDERED: PANTOPRAZOLE 40 MG/10 ML VIAL IV SCH (09:00)
--- NOTE | 2022-05-16 11:24 | P.HPIM ---
History of Present Illness 56-year-old female was brought in because of altered mental status. Her urine drug screen is positive for marijuana. Upon cushioning patient admits to using by mouth marijuana, patient was also taking Flexeril for back pain. Patient is alert oriented 3 at this time able to provide a good history. Patient denied any UTI symptoms patient denied dysuria Cipro will be pain patient doesn't have any leukocytosis or fever urine is mildly abnormal and with a positive nitrate and mild leukocyte esterase. Patient is a 1 day of antibiotics. REVIEW OF SYSTEMS: CONSTITUTIONAL: No fever, no malaise, no fatigue. HEENT: No recent visual problems or hearing problems. Denied any sore throat. CARDIOVASCULAR: No chest pain, orthopnea, PND, no palpitations, no syncope. PULMONARY: No shortness of breath, no cough, no hemoptysis. GASTROINTESTINAL: No diarrhea, no nausea, no vomiting, no abdominal pain. NEUROLOGICAL: No headaches, no weakness, no numbness. HEMATOLOGICAL: Denies any bleeding or petechiae. GENITOURINARY: Denies any burning micturition, frequency, or urgency. MUSCULOSKELETAL/RHEUMATOLOGICAL: Denies any joint pain, swelling, or any muscle pain. ENDOCRINE: Denies any polyuria or polydipsia. The rest of the 14-point review of systems is negative. PHYSICAL EXAMINATION: GENERAL: The patient is alert and oriented x3, not in any acute distress. Well developed, well nourished. HEENT: Pupils are round and equally reacting to light. EOMI. No scleral icterus. No conjunctival pallor. Normocephalic, atraumatic. No pharyngeal erythema. No thyromegaly. CARDIOVASCULAR: S1 and S2 present. No murmurs, rubs, or gallops. PULMONARY: Chest is clear to auscultation, no wheezing or crackles. ABDOMEN: Soft, nontender, nondistended, normoactive bowel sounds. No palpable organomegaly. MUSCULOSKELETAL: No joint swelling or deformity. EXTREMITIES: No cyanosis, clubbing, or pedal edema. NEUROLOGICAL: Gross neurological examination did not reveal any focal deficits. SKIN: No rashes. Assessment and plan -Altered mental status: Secondary to marijuana use and Flexeril , patient doesn't have any other symptoms of urinary tract infection. -Asymptomatic bacteriuria will not require any antibiotics her altered mental status is secondary to marijuana and Flexeril counseling regarding this was provided patient follows up with Dr. Moody. -Hyperthyroidism -Type 2 diabetes mellitus for which patient is on metformin which she can continue Patient will be discharged today to follow up with Dr. Moody as an outpatient. Past Medical History Past Medical History: Diabetes Mellitus, Thyroid Disorder Additional Past Medical History / Comment(s): CHRONIC BACK PAIN. Fatigue. Treated for sepsis 6 weeks ago. Had UTI prior to that for 4-5 months. History of Any Multi-Drug Resistant Organisms: None Reported Past Surgical History: Bariatric Surgery Additional Past Surgical History / Comment(s): WEIGHT LOSS SURGERY- SLEEVE BYPASS. Tummy tuck, excess skin removed. Past Anesthesia/Blood Transfusion Reactions: No Reported Reaction Past Psychological History: No Psychological Hx Reported Smoking Status: Unknown if ever smoked Past Alcohol Use History: None Reported Additional Past Alcohol Use History / Comment(s): Patient states that she is a lifelong nonsmoker. No marijuana or illicit drug use. She denies any alcohol use. She lives at home with her . There is a dog and a cat in the home. 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 Past Drug Use History: None Reported - Past Family History Mother Family Medical History: No Reported History Additional Family Medical History / Comment(s): from ruptured aneurysm. Sister(s) Family Medical History: Cancer Additional Family Medical History / Comment(s): Breast cancer. Father Additional Family Medical History / Comment(s): at age 39 ETOH abuse. Medications and Allergies Home Medications Medication Instructions Recorded Confirmed Type Ferrous Sulfate [Iron (65 MG 325 mg PO Q48H 06/17/19 05/15/22 History Elemental)] Multivitamins, Thera [Multivitamin 1 tab PO DAILY 06/17/19 05/15/22 History (formulary)] metFORMIN HCL [Glucophage] 1,000 mg PO BID 06/17/19 05/15/22 History Cyclobenzaprine [Flexeril] 10 mg PO DAILY 05/15/22 05/15/22 History Levothyroxine Sodium [Synthroid] 112 mcg PO DAILY 05/15/22 05/15/22 History Pravastatin Sodium [Pravachol] 40 mg PO HS 05/15/22 05/15/22 History Zolpidem Tartrate [Ambien Cr] 12.5 mg PO HS PRN 05/15/22 05/15/22 History Allergies Allergy/AdvReac Type Severity Reaction Status Date / Time latex Allergy Anaphylaxis Verified 05/15/22 23:11 Penicillins Allergy Anaphylaxis, Verified 05/15/22 23:11 throat swelling, rash all over body Physical Exam Vitals: Vital Signs Temp Pulse Pulse Resp BP BP Pulse Ox 05/16/22 08:41 18 05/16/22 07:00 97.5 F L 78 18 133/76 98 05/16/22 01:53 97.8 F 90 16 144/92 97 05/16/22 01:35 97.8 F 18 98 05/16/22 01:09 97.8 F 91 18 154/98 96 05/15/22 22:55 91 18 130/82 98 05/15/22 22:13 98.5 F 67 18 124/80 96 Intake and Output 05/15/22 05/16/22 05/16/22 22:59 06:59 14:59 Intake Total 118 Balance 118 Intake: Oral 118 Other: Voiding Method Toilet Toilet # Voids 1 Weight 90.718 kg 90.718 kg Results CBC & Chem 7: 05/15/22 22:38 05/15/22 22:38 Labs: Abnormal Lab Results - Last 24 Hours (Table) 05/15/22 05/15/22 05/15/22 Range/Units 22:34 22:38 22:38 APTT 21.8 L (22.0-30.0) sec Chloride 110 H (98-107) mmol/L BUN 20 H (7-17) mg/dL Glucose 145 H (74-99) mg/dL POC Glucose (mg/dL) 130 H (75-99) mg/dL AST 113 H (14-36) U/L ALT 88 H (4-34) U/L Urine Appearance (Clear) Urine Protein (Negative) Urine Nitrite (Negative) Ur Leukocyte Esterase (Negative) Urine WBC (0-5) /hpf Urine Bacteria (None) /hpf Hyaline Casts (0-2) /lpf Urine Mucus (None) /hpf U Tricyclic Antidepress (NotDetected) U Marijuana (THC) Screen (NotDetected) 05/15/22 Range/Units 23:50 APTT (22.0-30.0) sec Chloride (98-107) mmol/L BUN (7-17) mg/dL Glucose (74-99) mg/dL POC Glucose (mg/dL) (75-99) mg/dL AST (14-36) U/L ALT (4-34) U/L Urine Appearance Cloudy H (Clear) Urine Protein 1+ H (Negative) Urine Nitrite Positive H (Negative) Ur Leukocyte Esterase Moderate H (Negative) Urine WBC 76 H (0-5) /hpf Urine Bacteria Many H (None) /hpf Hyaline Casts 9 H (0-2) /lpf Urine Mucus Many H (None) /hpf U Tricyclic Antidepress Detected H (NotDetected) U Marijuana (THC) Screen Detected H (NotDetected) Microbiology - Last 24 Hours (Table) 05/15/22 23:50 Urine Culture - Preliminary Urine,Voided Thrombosis Risk Factor Assmnt - Choose All That Apply Each Factor Represents 1 point: Age 41-60 years, Obesity (BMI >25) Thrombosis Risk Factor Assessment Total Risk Factor Score: 2 Thrombosis Risk Factor Assessment Level: Low Risk
--- NOTE | 2022-05-16 11:25 | P.DS ---
Providers Date of admission: 05/16/22 00:26 Attending physician: Delilah Perera Primary care physician: Stated None Hospital Course: Refer to my history of present illness for further details Patient Condition at Discharge: Fair Plan - Discharge Summary New Discharge Prescriptions: Continue Ferrous Sulfate [Iron (65 MG Elemental)] 325 mg PO Q48H Multivitamins, Thera [Multivitamin (formulary)] 1 tab PO DAILY metFORMIN HCL [Glucophage] 1,000 mg PO BID Pravastatin Sodium [Pravachol] 40 mg PO HS Cyclobenzaprine [Flexeril] 10 mg PO DAILY Zolpidem Tartrate [Ambien Cr] 12.5 mg PO HS PRN PRN Reason: Insomnia Levothyroxine Sodium [Synthroid] 112 mcg PO DAILY Discharge Medication List Ferrous Sulfate [Iron (65 MG Elemental)] 325 mg PO Q48H 06/17/19 [History] Multivitamins, Thera [Multivitamin (formulary)] 1 tab PO DAILY 06/17/19 [History] metFORMIN HCL [Glucophage] 1,000 mg PO BID 06/17/19 [History] Cyclobenzaprine [Flexeril] 10 mg PO DAILY 05/15/22 [History] Levothyroxine Sodium [Synthroid] 112 mcg PO DAILY 05/15/22 [History] Pravastatin Sodium [Pravachol] 40 mg PO HS 05/15/22 [History] Zolpidem Tartrate [Ambien Cr] 12.5 mg PO HS PRN 05/15/22 [History] Follow up Appointment(s)/Referral(s): Nimesh Moody MD [STAFF PHYSICIAN] - 1 Week Activity/Diet/Wound Care/Special Instructions: Return to ER for worsening problems or concerns. Do not mix flexeril with other medications/recreational drugs (alcohol, marajuana, edibles) that can poteniate the sedative effects of flexeril/ambien Discharge Disposition: HOME SELF-CARE
== END 2022-05-16 11:25 | disposition home or self-care (01) ==
LOC: EC 22:03 → 6NMEDSUR 05-16 00:26
PROVIDERS: ADMIT Hospitalist; ATTEND Hospitalist
DX: R41.82 Altered mental status, unspecified (principal); R82.71 Bacteriuria; E05.90 Thyrotoxicosis, unspecified without thyrotoxic crisis or storm; E11.9 Type 2 diabetes mellitus without complications; G89.29 Other chronic pain; M54.9 Dorsalgia, unspecified; E86.0 Dehydration; R53.83 Other fatigue; E66.9 Obesity, unspecified; Z68.35 Body mass index [BMI] 35.0-35.9, adult; Z79.84 Long term (current) use of oral hypoglycemic drugs; Z79.890 Hormone replacement therapy; Z79.899 Other long term (current) drug therapy; Z88.0 Allergy status to penicillin; Z91.040 Latex allergy status; Z87.440 Personal history of urinary (tract) infections; Z86.19 Personal history of other infectious and parasitic diseases; Z98.84 Bariatric surgery status; Z71.9 Counseling, unspecified; Z82.49 Family history of ischemic heart disease and other diseases of the circulatory system; Z80.3 Family history of malignant neoplasm of breast; Z81.1 Family history of alcohol abuse and dependence
CPT/HCPCS: 96375; 96361; 96365; 99285; 36415; 93005; 80053; 82140; 83735; 84484; 85025; 85610; 85730; 81001; 80306; 80320; 87086; 87077; 87186; 71045; 70450; G0378; J0696; C9113

== ENCOUNTER → 2025-02-12 | Outpatient (CLI) | payer BC ==
--- NOTE | 2025-02-12 17:32 | XR ---
EXAMINATION TYPE: XR KUB DATE OF EXAM: 02/12/2025 COMPARISON: CT abdomen and pelvis 06/17/2019 HISTORY: Constipation TECHNIQUE: Single supine KUB image of the abdomen is obtained FINDINGS: Small bowel demonstrates no evidence for dilatation or air fluid levels. Moderate to large amount of stool is present within the right colon. Moderate amount of gas identifie d within the distal transverse colon and proximal descending colon. Suture material identified within the left upper quadrant from gastric surgery. No convincing evidence for pneumoperitoneum. Pelvic phleboliths. The lung bases are clear. The osseous structures are intact. IMPRESSION: Moderate to large amount of stool is present within the right colon with moderate amount of gas ident ified within the left colon. This correlates with reported constipation. [facility], , 02/12/2025 5:29 PM
== END | disposition home or self-care (01) ==
LOC: RADXRMAIN 17:07
PROVIDERS: ATTEND Family Medicine
DX: K59.00 Constipation, unspecified (principal)
CPT/HCPCS: 74018